=== PATIENT | male | born 1930 | race Caucasian/White ===

== ENCOUNTER 2017-10-30 11:43 | Emergency (ER) | payer MEDICARE, OTHER ==
[~2017-10-30] VITALS: Ht 175.3 cm; Wt 82.6 kg
--- NOTE | 2017-10-30 11:51 | NUR ---
BBPA FROM [facility]: UNWITNESSED FALL TODAY IN AM. ABRASIONS TO FOREHEAD. VSS. NEG ACUTE DISTRESS. WILL CONTINUE TO MONITOR. SAFETY MEASURES IN PLACE. CALL LIGHT WITHIN REACH.
--- NOTE | 2017-10-30 12:04 | NUR ---
URINE OBTAINED AND SENT TO LAB.
[2017-10-30 12:17] LABS: APPEARANCE,URINE Clear (CLEAR); BILIRUBIN,URINE Negative (NEGATIVE); BLOOD, URINE Negative Ery/uL (NEGATIVE); COLOR,URINE Yellow (YELLOW); KETONES,URINE Negative (NEGATIVE); LEUKOCYTE ESTERASE ,URINE Negative (NEGATIVE); NITRITE, URINE Negative (NEGATIVE); PH,URINE 5.5 (5.0-8.0); PROTEIN,URINE 30 mg/dl (NEGATIVE); UGLUCOSE Negative (NEGATIVE); UROBILINOGEN,URINE 0.2 EU/dL (0.2)
[2017-10-30 12:18] LABS: BASOPHILS % (AUTO) 0.6 % (0.0-2.0); EOSINOPHILS % (AUTO) 2.5 % (0.0-6.0); HEMATOCRIT 37 % (39-51); HEMOGLOBIN 12.3 g/dL (13.5-17.5); LYMPHOCYTES # (AUTO) 1.5 /CMM (0.8-4.8); LYMPHOCYTES % (AUTO) 27.1 % (20.0-44.0); MEAN CORPUSCULAR HGB CONC 34 g/dl (31.0-36.0); MEAN CORPUSCULAR VOLUME 88 fL (80-96); MONOCYTES # (AUTO) 0.5 /CMM (0.1-1.30); MONOCYTES % (AUTO) 8.5 % (2.0-12.0); NEUTROPHILS # (AUTO) 3.5 /CMM (1.8-8.9); NEUTROPHILS % (AUTO) 61.3 % (43.0-81.0); PLATELET COUNT (AUTO) 274 /CMM (150-450); RDW COEFFICIENT OF VARIATION 13.8 (11.5-15.0); RED BLOOD CELL COUNT(AUTO) 4.13 MIL/uL (4.5-6.0); WHITE BLOOD COUNT (AUTO) 5.6 K/uL (4.3-11.0)
[2017-10-30 12:23] LABS: BACTERIA,URINE None seen /HPF (None Seen); RBC,URINE 0-3 /HPF (0-2); SQUAMOUS EPITHELIAL CELL,UR Few /HPF (None Seen)
[2017-10-30 12:25] LABS: CALCIUM, SERUM 9.1 mg/dL (8.5-10.1); CARBON DIOXIDE 29 mmol/L (21-32); CHLORIDE 109 mmol/L (98-107); CREATININE 2.1 mg/dL (0.6-1.3); GLUCOSE 86 mg/dL (74-106); POTASSIUM 4.9 mmol/L (3.5-5.1); SODIUM SERUM 142 mmol/L (136-145); UREA NITROGEN, BLOOD 46 mg/dL (7-18)
--- NOTE | 2017-10-30 12:25 | NUR ---
PT UNDERGOING X RAY
[2017-10-30 12:31] LABS: ALANINE AMINOTRANSFERASE 20 U/L (12-78); ALBUMIN 3.2 g/dL (3.4-5.0); ALKALINE PHOSPHATASE 130 U/L (46-116); ASPARTATE AMINOTRANSFERASE 17 U/L (15-37); BILIRUBIN,DIRECT 0.1 mg/dL (0.0-0.2); BILIRUBIN,TOTAL 0.4 mg/dL (0.2-1.0); TOTAL PROTEIN, SERUM 7.4 g/dL (6.4-8.2)
[2017-10-30 12:33] LABS: TROPONIN I < 0.017 ng/mL (0.00-0.056)
--- NOTE | 2017-10-30 12:50 | NUR ---
PT UNDERGOING CT SCAN
--- NOTE | 2017-10-30 13:03 | NUR ---
PATIENT RETURNED FROM CT.
--- NOTE | 2017-10-30 13:45 | NUR ---
ambulance eta 20 minutes
--- NOTE | 2017-10-30 14:29 | NUR ---
REPORT GIVEN TO GEMINI AT [facility] FOR DISCHARGE BACK TO FACILITY.
[2017-10-30 14:35] VITALS: BP 135/94
--- NOTE | 2017-10-30 14:38 | NUR ---
Patient discharged back to [facility] in stable condition. Written and verbal after care instructions given. Report given to Indigo at [facility]. Patient discharged via ambulance.
== END 2017-10-30 14:37 ==
LOC: ER 11:45
DX: S09.8XXA Other specified injuries of head, initial encounter (principal); G30.9 Alzheimer's disease, unspecified; F02.80 Dementia in other diseases classified elsewhere, unspecified severity, without behavioral disturbance, psychotic disturbance, mood disturbance, and anxiety; I12.9 Hypertensive chronic kidney disease with stage 1 through stage 4 chronic kidney disease, or unspecified chronic kidney disease; E11.22 Type 2 diabetes mellitus with diabetic chronic kidney disease; N18.9 Chronic kidney disease, unspecified; K21.9 Gastro-esophageal reflux disease without esophagitis; Z91.81 History of falling; W18.39XA Other fall on same level, initial encounter; Y93.89 Activity, other specified; Y92.89 Other specified places as the place of occurrence of the external cause; Y99.8 Other external cause status
CPT/HCPCS: 36415; 70450; 71045; 80048; 80076; 81001; 82962; 84484; 85025; 87086; 93005; 99285; A4606; 81000-TC; Z7610

== ENCOUNTER 2017-11-15 12:45 | Inpatient (IN) | payer MEDICARE, OTHER ==
[~2017-11-15] VITALS: Ht 177.8 cm; Wt 80.7 kg
--- NOTE | 2017-11-15 12:50 | NUR ---
ANUPAM FROM [facility] FOR PSYCH EVAL FOR AGGRESSION AND MEDICAL CLEARANCE, AA0X2, NAD, VSS, RESP EVEN AND UNLABORED, PT WAS PUT ON MONITOR AND PT WAS PUT ON MD JOSE DAVID AT BS.
--- NOTE | 2017-11-15 13:05 | NUR ---
URINE AND BLOOD SAMPLE SENT TO LAB
[2017-11-15 13:15] LABS: BASOPHILS % (AUTO) 0.4 % (0.0-2.0); EOSINOPHILS % (AUTO) 5.2 % (0.0-6.0); HEMATOCRIT 34 % (39-51); HEMOGLOBIN 11.6 g/dL (13.5-17.5); LYMPHOCYTES # (AUTO) 1.3 /CMM (0.8-4.8); LYMPHOCYTES % (AUTO) 22.5 % (20.0-44.0); MEAN CORPUSCULAR HEMOGLOBIN 31 PG (26.0-33.0); MEAN CORPUSCULAR HGB CONC 34 g/dl (31.0-36.0); MEAN CORPUSCULAR VOLUME 91 fL (80-96); MONOCYTES # (AUTO) 0.5 /CMM (0.1-1.30); MONOCYTES % (AUTO) 7.7 % (2.0-12.0); NEUTROPHILS # (AUTO) 3.9 /CMM (1.8-8.9); NEUTROPHILS % (AUTO) 64.2 % (43.0-81.0); PLATELET COUNT (AUTO) 287 /CMM (150-450); RDW COEFFICIENT OF VARIATION 13.8 (11.5-15.0); RED BLOOD CELL COUNT(AUTO) 3.76 MIL/uL (4.5-6.0)
[2017-11-15 13:17] LABS: APPEARANCE,URINE Clear (CLEAR); BILIRUBIN,URINE Negative (NEGATIVE); BLOOD, URINE Trace-intact Ery/uL (NEGATIVE); COLOR,URINE Yellow (YELLOW); KETONES,URINE Negative (NEGATIVE); LEUKOCYTE ESTERASE ,URINE Negative (NEGATIVE); NITRITE, URINE Negative (NEGATIVE); PH,URINE 5.5 (5.0-8.0); PROTEIN,URINE Trace mg/dl (NEGATIVE); UGLUCOSE Negative (NEGATIVE); UROBILINOGEN,URINE 0.2 EU/dL (0.2)
[2017-11-15 13:26] LABS: BACTERIA,URINE None seen /HPF (None Seen); CALCIUM, SERUM 8.4 mg/dL (8.5-10.1); CARBON DIOXIDE 29 mmol/L (21-32); CHLORIDE 108 mmol/L (98-107); GLUCOSE 110 mg/dL (74-106); POTASSIUM 4.8 mmol/L (3.5-5.1); SODIUM SERUM 142 mmol/L (136-145); SQUAMOUS EPITHELIAL CELL,UR Few /HPF (None Seen); UREA NITROGEN, BLOOD 44 mg/dL (7-18); WBC,URINE 0-2 /HPF (0-3)
[2017-11-15 13:30] LABS: ACETAMINOPHEN 0 ug/ml (10-30); ALANINE AMINOTRANSFERASE 21 U/L (12-78); ALCOHOL, BLOOD < 3 mg/dL (0-0); ALKALINE PHOSPHATASE 133 U/L (46-116); ASPARTATE AMINOTRANSFERASE 17 U/L (15-37); BILIRUBIN,DIRECT 0.1 mg/dL (0.0-0.2); BILIRUBIN,TOTAL 0.3 mg/dL (0.2-1.0); SALICYLATE 0.6 mg/dL (2.8-20.0); TOTAL PROTEIN, SERUM 6.9 g/dL (6.4-8.2)
[2017-11-15] MEDS ORDERED: QUET25TA PO (13:44)
[2017-11-15] MEDS ORDERED: PANT40TA2 PO (13:44)
[2017-11-15] MEDS ORDERED: MAGN400O6 PO (13:44)
[2017-11-15] MEDS ORDERED: LOSA50TA3 PO (13:44)
[2017-11-15] MEDS ORDERED: ASCO500T9 PO (13:44)
[2017-11-15] MEDS ORDERED: INSU100I19 SQ (13:44)
[2017-11-15] MEDS ORDERED: ESCI5TAB PO (13:44)
[2017-11-15] MEDS ORDERED: MEMA1CAP2 PO (13:44)
[2017-11-15] MEDS ORDERED: QUET50TA PO (13:44)
[2017-11-15] MEDS ORDERED: ACET-868 PO (13:44)
[2017-11-15] MEDS ORDERED: BLOO-668 IN (13:44)
[2017-11-15] MEDS ORDERED: INSU100V11 SQ (13:44)
[2017-11-15] MEDS ORDERED: NA P133E RC (13:44)
[2017-11-15] MEDS ORDERED: POLY17PO4 PO (13:44)
--- NOTE | 2017-11-15 13:56 | NUR ---
CALLED [facility] BACTERIOLOGIST [facility]
--- NOTE | 2017-11-15 15:25 | NUR ---
CALLED [facility], INFECTION CONTROL NURSE WAS PAGED.
--- NOTE | 2017-11-15 15:27 | NUR ---
CALLED [facility], BOARD MIXER TENDER WAS PAGED.
--- NOTE | 2017-11-15 16:44 | NUR ---
PT REFUSED IV INSERTION, MADE CORTEZ SCHMITT AWARE, AND OKAY TO TRANSFER PT WITHOUT IV ACCESS. ENDORSED TO ROCIO COSME.
[2017-11-15 17:05] VITALS: BP 148/84
--- NOTE | 2017-11-15 17:39 | NUR ---
MS RN ADMITTING NOTES PATIENT ADMITTED TO UNIT AT 1700 VIA GURNEY AWAKE, ALERT AND RESPONSIVE TO TACTILE AND VERBAL STIMULI. PT ABLE TO AMBULATE AND TRANSFERRED HIMSELF TO BED. PT IS KAZAKH SPEAKING AND ORIENTED TO ROOM. PT WITH DIAGNOSIS OF RENAL INSUFFICIENCY. NO C/O OF PAIN OR DISCOMFORTS VOICED DURING ADMISSION. V/S TAKEN AND RECORDED. ASSESSMENT DONE FROM HEAD TO TOE. PT ABLE TO MOVE ALL FOUR EXTREMITIES WITHOUT DIFFICULTY. BOTH LUNGS CLEAR TO AUSCULTATION. ABDOMEN IS SOFT, NON-TENDED, NON-DISTENDED WITH POSITIVE BOWEL SOUNDS ON FOUR QUADRANTS. PHOTOS OF SKIN TAKEN AND FILED ON CHART. PT HAD NO IV ACCESS, REFUSED INSERTION FROM E.R. AND HERE IN THE UNIT DESPITE ENCOURAGEMENT, DR CISNEROS MADE AWARE. SAFETY MEASURES INITIATED. HOB ELEVATED. BED PLACED IN LOW/LOCKED POSITION WITH SIDE-RAILS UP X 2. KEEP BED ALARM ON. CALL LIGHT WITHIN REACH. DR CISNEROS MADE AWARE OF PT'S ADMISSION WITH ORDER TO CONTINUE ALL HOME MEDS, PLACED PT ON RENAL DIET AND DO CBC. BMP, MG AND PHOSPHOROUS TOMORROW MORNING. WILL CONTINUE TO MONITOR PT.
--- NOTE | 2017-11-15 18:09 | NUR ---
RN NOTES SPOKE TO DR ROBERTSON VIA PHONE WITH ORDER TO PUT PT ON ACCU-CHECK ACHS WITH MILD SCALE INSULIN PRN.
[2017-11-15] MEDS ORDERED: ACETAMINOPHEN 325 MG TABLET PO PRN (18:30)
[2017-11-15] MEDS ORDERED: POLYETHYLENE GLYCOL 3350 17 GM POWD.PACK PO PRN (18:30)
[2017-11-15] MEDS ORDERED: MAGNESIUM HYDROXIDE 30 ML UDC PO PRN (18:30)
[2017-11-15] MEDS ORDERED: INSULIN ASPART/LISPRO 100 UNIT/ML CARTRIDGE SQ PRN (18:30)
[2017-11-15] MEDS ORDERED: NA PHOS,M-B/NA PHOS,DI-BA 1 EA ENEMA RC PRN (18:30)
--- NOTE | 2017-11-15 18:56 | NUR ---
MS RN CLOSING NOTES PATIENT AWAKE AND RESTING AT MODERATE HIGH BACKREST IN BED. A/O X2. UGANDAN SPEAKING AND NOTED WITH EPISODE OF CONFUSION. ON ROOM AIR, BREATHING EVEN WITH NO ACUTE RESPIRATORY DISTRESS NOTED. PT HAS NO IV ACCESS AND REFUSED INSERTION. ALL SAFETY MEASURES KEPT IN PLACE. BED LOCKED AND IN LOW POSITION. BILATERAL UPPER SIDE RAILS UP AND LOCKED. BED ALARRM ON. CALL LIGHT WITHIN EASY REACH. ALL NEEDS AND CARE ATTENDED WELL. WILL ENDORSE TO SAFETY AND SECURITY MANAGER NURSE FOR CONTINUITY OF CARE.
--- NOTE | 2017-11-15 19:20 | NUR ---
RN OPENING NOTES RECEIVED PT IN BED, AWAKE, ALERT AND CONFUSED, WHILE AM SHIFT NURSE WAS GIVING REPORT PT WITH EPISODE OF GETTING UP UNASSISTED. RE-ORIENTED PT ON USE OF CALL LIGHT BUT PT IS UNABLE TO FOLLOW AND NEEDS REINFORCEMENT. PT NOTED WITH NO SOB, BREATHING EVEN AND UNLABORED, IN NO ACUTE DISTRESS. PT WITH NO IV PERIPHERAL LINE AND REFUSES FOR ONE TO BE INSERTED. PLACED CALL LIGHT WITHIN EASY REACH. BED IN LOW POSITION AND LOCKED IN PLACE. WILL CONTINUE TO MONITOR PT.
[2017-11-15] MEDS ORDERED: DEXTROSE 50%-WATER 50 ML DISP.SYRIN IV PRN (19:30)
[2017-11-15] MEDS ORDERED: INSULIN REGULAR, HUMAN 100 UNIT/ML 3 ML VIAL SQ PRN (19:30)
[2017-11-15 20:00] VITALS: BP 153/79
[2017-11-15] MEDS: BLOOD SUGAR DIAGNOSTIC 1 EACH STRIP IN SCH (21:35)
[2017-11-15] MEDS ORDERED: DONEPEZIL 5 MG TABLET PO SCH (22:00)
[2017-11-15] MEDS ORDERED: QUETIAPINE FUMARATE 25 MG TABLET PO SCH (22:00)
[2017-11-15] MEDS ORDERED: Medication Not On Formulary EA (Quetiapine Fumarate (Seroquel) 50 MG) PO SCH (22:00)
[2017-11-15] MEDS: INSULIN GLARGINE, 100 UNIT/ML CARTRIDGE SQ SCH ×2 (22:00→22:42)
--- NOTE | 2017-11-15 22:00 | NUR ---
RN NOTES PT REFUSED INSULIN 5ML TO BE ADMINISTERED AND STARTED TO CURSE AT STAFF. EXPLAINED RISKS AND BENEFITS TO PT BUT PT CONTINUES TO REFUSE AND IS STARTING TO GET UPSET. APPROACHED PT IN A CALMER MANNER, RE-ORIENTED PT AND PT CALMED DOWN AT THIS TIME. WILL CONTINUE TO MONITOR.
--- NOTE | 2017-11-15 23:04 | NUR ---
RN NOTES PT CONTINUES TO BE CONFUSED AND IS VERBALIZING THAT HE IS AT HOME, WITH MULTIPLE ATTEMPTS TO GET OUT OF BED AND WANDER THE UNIT. PT APPROACHED CALMY AND RE-ORIENTED NEEDED PT HAS UNSTEADY GAIT. PT NON COMPLIANT AND CONTINUES TO HAVE EPISODES OF AGITATION AND COMBATIVE BEHAVIOR AND IS CURSING AT STAFF. RE-ORIENTED PT NEEDED. PAGED WEIGHT CALLER , DR. ROBERTSON. WAITING FOR CALL BACK.
--- NOTE | 2017-11-15 23:32 | NUR ---
RN NOTES PT CONTINUES TO WALK AROUND UNIT WITH STANDBY ASSIST. PT RE-ORIENTED NEEDED BUT HAS PERIODS OF AGITATION AND COMBATIVE BEHAVIOR TOWARDS STAFF. PAGED BRAID MAKER MD ONCE AGAIN. WAITING FOR CALL BACK.
--- NOTE | 2017-11-16 | NUR ---
RN NOTES PATIENT CONTINUES TO ROAM AROUND THE UNIT BUT IS NOW USING A WHEELCHAIR, RE-ORIENTED PT NEEDED BUT STILL EXHIBITS COMBATIVE BEHAVIOR AND IS AGITATED WHEN APPROACHED BY SOME STAFF WITH ATTEMPTS TO HIT STAFF. PAGED B2B SALES EXECUTIVE MD. WAITING FOR CALL BACK.
--- NOTE | 2017-11-16 00:45 | NUR ---
RN NOTES PATIENT CONTINUES TO GO AROUND THE UNIT VIA WHEELCHAIR WITH SUPERVISION. PATIENT WITH ATTEMPTS TO ENTER OTHER PT'S ROOMS AND OPEN CLOSETS. BECOMES AGITATED AT TIMES WHEN RE-ORIENTED AND STARTS TO EXHIBIT COMBATIVE BEHAVIOR. STILL RE-ORIENTED NEEDED. WAITING FOR CALL BACK FROM QUARRY PLUG AND FEATHER DRILLER MD.
--- NOTE | 2017-11-16 01:35 | NUR ---
RN NOTES RECEIVED CALL BACK FROM DR. ROBERTSON, WITH NEW ORDER: ATIVAN 1MG IM [id number] PRN FOR AGITATION. ALL ORDERS NOTED AND CARRIED OUT.
--- NOTE | 2017-11-16 01:45 | NUR ---
RN NOTES PATIENT AGREED TO BE PUT BACK TO BED, APPEARS TIRED, NOW COMPLIANT AND IS FOLLOWING INSTRUCTIONS. WILL CONTINUE TO MONITOR PT. CALL LIGHT PLACED WITHIN EASY REACH, BED IN LOW POSITION, BED ALARM ON AND LOCKED IN PLACE. WILL CONTINUE TO MONITOR PT.
[2017-11-16] MEDS: LORAZEPAM INJ 2 MG/ML VIAL IM PRN ×2 (02:39→09:19)
--- NOTE | 2017-11-16 02:44 | NUR ---
RN NOTES PT IN BED, AWAKE, CRYING OUT TO STAFF AND NOTED WITH AGITATION, RE-ORIENTED PT. ADMINISTERED ATIVAN IM ORDERED. WILL CONTINUE TO MONITOR.
[2017-11-16] MEDS: BLOOD SUGAR DIAGNOSTIC 1 EACH STRIP IN SCH ×2 (06:33→11:39)
--- NOTE | 2017-11-16 06:38 | NUR ---
RN CLOSING NOTES PATIENT IN BED, ASLEEP BUT EASILY AROUSABLE ,ALERT AND ORIENTED TO SELF AND CONFUSED. ALL NEEDS ATTENDED TO THROUGHOUT THE SHIFT, RE-ORIENTED NEEDED. NOTED WITH EPISODES OF AGGRESSIVE AND COMBATIVE BEHAVIOR, TRYING TO HIT STAFF AND WITH FOUL LANGUAGE DIRECTED TO STAFF. DUE MEDICATIONS GIVEN. PT CALM AT THIS TIME, WAS ABLE TO INSERT IV LINE ON LFA G#22, INTACT AND PATENT. KEPT PT SAFE AND DRY, CLEAN AND COMFORTABLE. PLACED CALL LIGHT WITHIN EASY REACH. BED IN LOW POSITION, LOCKED IN PLACE AND BED ALARM ON. WILL ENDORSE TO AM SHIFT NURSE FOR CONTINUITY OF CARE.
[2017-11-16 06:52] LABS: BASOPHILS % (AUTO) 0.4 % (0.0-2.0); EOSINOPHILS % (AUTO) 3.3 % (0.0-6.0); HEMATOCRIT 35 % (39-51); HEMOGLOBIN 11.7 g/dL (13.5-17.5); LYMPHOCYTES # (AUTO) 1.8 /CMM (0.8-4.8); LYMPHOCYTES % (AUTO) 23.3 % (20.0-44.0); MEAN CORPUSCULAR HEMOGLOBIN 31 PG (26.0-33.0); MEAN CORPUSCULAR HGB CONC 33 g/dl (31.0-36.0); MEAN CORPUSCULAR VOLUME 93 fL (80-96); MONOCYTES # (AUTO) 0.7 /CMM (0.1-1.30); MONOCYTES % (AUTO) 9.4 % (2.0-12.0); NEUTROPHILS # (AUTO) 4.9 /CMM (1.8-8.9); NEUTROPHILS % (AUTO) 63.6 % (43.0-81.0); PLATELET COUNT (AUTO) 280 /CMM (150-450); RDW COEFFICIENT OF VARIATION 14.7 (11.5-15.0); RED BLOOD CELL COUNT(AUTO) 3.81 MIL/uL (4.5-6.0); WHITE BLOOD COUNT (AUTO) 7.6 K/uL (4.3-11.0)
[2017-11-16 07:15] LABS: CALCIUM, SERUM 8.6 mg/dL (8.5-10.1); CARBON DIOXIDE 24 mmol/L (21-32); CHLORIDE 111 mmol/L (98-107); CREATININE 2.2 mg/dL (0.6-1.3); GLUCOSE 94 mg/dL (74-106); MAGNESIUM 1.9 mg/dL (1.8-2.4); PHOSPHORUS 3.5 mg/dL (2.5-4.9); POTASSIUM 4.6 mmol/L (3.5-5.1); SODIUM SERUM 143 mmol/L (136-145); UREA NITROGEN, BLOOD 47 mg/dL (7-18)
[2017-11-16] MEDS ORDERED: BLOOD SUGAR DIAGNOSTIC 1 EACH STRIP IN SCH (07:30)
[2017-11-16] MEDS ORDERED: PANTOPRAZOLE 40 MG TABLET.DR PO SCH (07:30)
--- NOTE | 2017-11-16 07:30 | NUR ---
RECEIVED PT. THIS AM CONFUSED,VS STABLE.HAS 1:1 SITTER.SIDE RAILS UP.SITTER AT BEDSIDE.
[2017-11-16 08:00] VITALS: BP 138/71
[2017-11-16] MEDS ORDERED: LOSARTAN POTASSIUM 50 MG TABLET PO SCH (09:00)
[2017-11-16] MEDS ORDERED: QUETIAPINE FUMARATE 25 MG TABLET PO SCH (09:00)
[2017-11-16] MEDS ORDERED: Medication Not On Formulary EA (Escitalopram Oxalate (Lexapro) 5 MG) PO SCH (09:00)
[2017-11-16] MEDS ORDERED: Medication Not On Formulary EA (Memantine HCl/Donepezil HCl (Namzaric 14 mg-10 mg Capsul PO SCH (09:00)
[2017-11-16] MEDS ORDERED: ESCITALOPRAM OXALATE (10 MG) 10 MG TABLET PO SCH (09:00)
[2017-11-16] MEDS ORDERED: ASCORBIC ACID 500 MG TABLET PO SCH (09:00)
[2017-11-16] MEDS ORDERED: MEMANTINE HCL 5 MG TABLET PO SCH (09:00)
--- NOTE | 2017-11-16 09:00 | NUR ---
AMBULATED SEVERAL TIMES TO BATHROOM WITH ASSIST,A LITTLE UNSTEADY.
--- NOTE | 2017-11-16 09:19 | NUR ---
PT. AGITATED AND THRASHING ARMS ABOUT AT [facility]-MEDICATED WITH ATIVAN IM ALONG WITH ROUTINE MEDS.
--- NOTE | 2017-11-16 12:00 | NUR ---
DR. CHIKI GALINDO IN AND DISCHARGE ORDER TO OUR [facility].
--- NOTE | 2017-11-16 12:30 | NUR ---
NO SLIDING SCALE INSULIN COVERAGE AT THIS TIME PT. GROGGY AND NOT EATING.
--- NOTE | 2017-11-16 14:30 | NUR ---
PINKY HERE EVAL. PT. FOR PSYCH HOLD.
[2017-11-16 15:00] VITALS: BP 128/72
--- NOTE | 2017-11-16 16:00 | NUR ---
REPORT CALLED TO AROLDO LUCIAO.PT. TRANSFERR[facility] TO [facility]IA BED WITH ALL PAPERS.
[2017-11-16] MEDS ORDERED: DEXT50DI8 IV (16:25)
[2017-11-16] MEDS ORDERED: MEMA10TA PO (16:25)
[2017-11-16] MEDS ORDERED: INSU100V3 SQ (16:25)
[2017-11-16] MEDS ORDERED: LORA2VIA6 IM (16:25)
[2017-11-16] MEDS ORDERED: DONE10TA44 PO (16:25)
[2017-11-16] MEDS ORDERED: INSU100V7 SQ (16:26)
== END 2017-11-16 15:45 | DRG 684 ==
LOC: ER 12:47 → MED 16:35
PROVIDERS: ADMIT Internal Medicine Nephrology; ATTEND Internal Medicine Nephrology
DX: I12.9 Hypertensive chronic kidney disease with stage 1 through stage 4 chronic kidney disease, or unspecified chronic kidney disease (principal); N18.9 Chronic kidney disease, unspecified; E11.22 Type 2 diabetes mellitus with diabetic chronic kidney disease; F02.80 Dementia in other diseases classified elsewhere, unspecified severity, without behavioral disturbance, psychotic disturbance, mood disturbance, and anxiety; G30.9 Alzheimer's disease, unspecified; K21.9 Gastro-esophageal reflux disease without esophagitis; Z79.4 Long term (current) use of insulin; Z91.81 History of falling; Z79.899 Other long term (current) drug therapy; R45.1 Restlessness and agitation
CPT/HCPCS: 36415; 80048-TC; 80076-TC; 80305; 81000-TC; 82962-TC; 83735-TC; 84100-TC; 85025-TC; 87081-TC; A4606; G0480; J1815; J2060; Z7610

== ENCOUNTER 2017-11-16 16:15 | Inpatient (IN) | payer MEDICARE, OTHER ==
[~2017-11-16] VITALS: Ht 175.3 cm; Wt 83.5 kg
[2017-11-16 08:00] VITALS: BP 138/71
[2017-11-16 16:00] VITALS: BP_SYST 119; BP_SYST 128; BP_SYST 129; BP_DIAS 72; BP_DIAS 73; BP_DIAS 80
[~2017-11-16 16:15] MED LIST: ACET-868 PO; ASCO500T9 PO; BLOO-668 IN; ESCI5TAB PO; INSU100I19 SQ; INSU100V11 SQ; LOSA50TA3 PO; MAGN400O6 PO; MEMA1CAP2 PO; NA P133E RC; PANT40TA2 PO; POLY17PO4 PO; QUET25TA PO; QUET50TA PO
[2017-11-16 16:22] VITALS: BP 143/79
[2017-11-16] MEDS ORDERED: INSU100V3 SQ (16:25)
[2017-11-16] MEDS ORDERED: DEXT50DI8 IV (16:25)
[2017-11-16] MEDS ORDERED: MEMA10TA PO (16:25)
[2017-11-16] MEDS ORDERED: DONE10TA44 PO (16:25)
[2017-11-16] MEDS ORDERED: LORA2VIA6 IM (16:25)
[2017-11-16] MEDS ORDERED: INSU100V7 SQ (16:26)
[2017-11-16] MEDS ORDERED: MAG HYDROX/AL HYDROX/SIMETH 30 ML UDC PO PRN (16:30)
[2017-11-16] MEDS ORDERED: ACETAMINOPHEN 325 MG TABLET PO PRN ×2 (16:30→18:30)
[2017-11-16] MEDS ORDERED: MAGNESIUM HYDROXIDE 30 ML UDC PO PRN ×2 (16:30→18:30)
[2017-11-16] MEDS ORDERED: DEXTROSE 50%-WATER 50 ML DISP.SYRIN IV PRN ×2 (18:30)
[2017-11-16] MEDS ORDERED: INSULIN REGULAR, HUMAN 100 UNIT/ML 3 ML VIAL SQ PRN ×2 (18:30)
[2017-11-16] MEDS ORDERED: POLYETHYLENE GLYCOL 3350 17 GM POWD.PACK PO PRN (18:30)
[2017-11-16] MEDS ORDERED: NA PHOS,M-B/NA PHOS,DI-BA 1 EA ENEMA RC PRN (18:30)
[2017-11-16] MEDS: MEMANTINE HCL 5 MG TABLET PO SCH (18:31)
[2017-11-16 20:00] VITALS: BP 108/63
[2017-11-16] MEDS: DONEPEZIL 5 MG TABLET PO SCH (21:24)
[2017-11-16] MEDS: BLOOD SUGAR DIAGNOSTIC 1 EACH STRIP IN SCH (22:09)
[2017-11-16] MEDS ORDERED: INSULIN GLARGINE, 100 UNIT/ML CARTRIDGE SQ ONE (22:33)
[2017-11-16] MEDS: INSULIN GLARGINE, 100 UNIT/ML CARTRIDGE SQ SCH (22:58)
[2017-11-17] MEDS: TEMAZEPAM 7.5 MG CAPSULE PO PRN ×2 (00:25→22:52)
[2017-11-17 01:50] VITALS: BP 121/71
[2017-11-17] MEDS ORDERED: BLOOD SUGAR DIAGNOSTIC 1 EACH STRIP IN SCH (07:30)
[2017-11-17 07:41] LABS: ALANINE AMINOTRANSFERASE 20 U/L (12-78); ALBUMIN 3.2 g/dL (3.4-5.0); ALKALINE PHOSPHATASE 123 U/L (46-116); ASPARTATE AMINOTRANSFERASE 20 U/L (15-37); BILIRUBIN,TOTAL 0.5 mg/dL (0.2-1.0); CALCIUM, SERUM 8.3 mg/dL (8.5-10.1); CARBON DIOXIDE 25 mmol/L (21-32); CHLORIDE 107 mmol/L (98-107); CREATININE 2.1 mg/dL (0.6-1.3); GLUCOSE 83 mg/dL (74-106); POTASSIUM 4.5 mmol/L (3.5-5.1); SODIUM SERUM 143 mmol/L (136-145); TOTAL PROTEIN, SERUM 6.8 g/dL (6.4-8.2); UREA NITROGEN, BLOOD 43 mg/dL (7-18)
[2017-11-17 07:43] LABS: CHOLESTEROL 105 mg/dL (<200); HDL CHOLESTEROL 34 mg/dL (40-60); LDL 66 mg/dL (0-99); TRIGLYCERIDES 65 mg/dL (30-150)
[2017-11-17 08:00] VITALS: BP 131/89
[2017-11-17] MEDS: BLOOD SUGAR DIAGNOSTIC 1 EACH STRIP IN SCH ×4 (08:01→21:53)
[2017-11-17] MEDS: ASCORBIC ACID 500 MG TABLET PO SCH (08:37)
[2017-11-17] MEDS: MEMANTINE HCL 5 MG TABLET PO SCH ×2 (08:38→18:04)
[2017-11-17] MEDS: LOSARTAN POTASSIUM 50 MG TABLET PO SCH (08:38)
[2017-11-17] MEDS: PANTOPRAZOLE 40 MG TABLET.DR PO SCH (08:38)
[2017-11-17] MEDS ORDERED: QUETIAPINE FUMARATE 25 MG TABLET PO PRN (12:30)
[2017-11-17] MEDS: SERTRALINE HCL 50 MG TABLET PO SCH (13:50)
[2017-11-17 16:00] VITALS: BP 146/82
[2017-11-17] MEDS: QUETIAPINE FUMARATE 25 MG TABLET PO SCH (18:04)
[2017-11-17 20:27] VITALS: BP 103/59
[2017-11-17] MEDS: INSULIN GLARGINE, 100 UNIT/ML CARTRIDGE SQ SCH (21:48)
[2017-11-17] MEDS: DONEPEZIL 5 MG TABLET PO SCH (22:53)
[2017-11-18 08:00] VITALS: BP 127/65
[2017-11-18] MEDS: LOSARTAN POTASSIUM 50 MG TABLET PO SCH (08:11)
[2017-11-18] MEDS: MEMANTINE HCL 5 MG TABLET PO SCH ×2 (08:11→16:52)
[2017-11-18] MEDS: QUETIAPINE FUMARATE 25 MG TABLET PO SCH ×2 (08:11→16:52)
[2017-11-18] MEDS: ASCORBIC ACID 500 MG TABLET PO SCH (08:13)
[2017-11-18] MEDS: PANTOPRAZOLE 40 MG TABLET.DR PO SCH (08:13)
[2017-11-18] MEDS: BLOOD SUGAR DIAGNOSTIC 1 EACH STRIP IN SCH ×4 (08:24→22:44)
[2017-11-18] MEDS: SERTRALINE HCL 50 MG TABLET PO SCH (13:00)
[2017-11-18 16:00] VITALS: BP 121/67
[2017-11-18] MEDS: DONEPEZIL 5 MG TABLET PO SCH (21:08)
[2017-11-18] MEDS: TEMAZEPAM 7.5 MG CAPSULE PO PRN (21:08)
[2017-11-18] MEDS: INSULIN GLARGINE, 100 UNIT/ML CARTRIDGE SQ SCH (22:00)
[2017-11-19 08:00] VITALS: BP 138/85
[2017-11-19] MEDS: ASCORBIC ACID 500 MG TABLET PO SCH (08:11)
[2017-11-19] MEDS: MEMANTINE HCL 5 MG TABLET PO SCH ×2 (08:11→16:30)
[2017-11-19] MEDS: BLOOD SUGAR DIAGNOSTIC 1 EACH STRIP IN SCH ×4 (08:11→22:09)
[2017-11-19] MEDS: PANTOPRAZOLE 40 MG TABLET.DR PO SCH (08:11)
[2017-11-19] MEDS: LOSARTAN POTASSIUM 50 MG TABLET PO SCH (08:11)
[2017-11-19] MEDS: QUETIAPINE FUMARATE 25 MG TABLET PO SCH ×3 (08:12→16:30)
[2017-11-19] MEDS: SERTRALINE HCL 50 MG TABLET PO SCH (12:22)
[2017-11-19 16:00] VITALS: BP 132/85
[2017-11-19 20:10] VITALS: BP 132/76
[2017-11-19] MEDS: LORAZEPAM 0.5 MG TABLET PO PRN (20:50)
[2017-11-19] MEDS: DONEPEZIL 5 MG TABLET PO SCH (21:11)
[2017-11-19] MEDS: INSULIN GLARGINE, 100 UNIT/ML CARTRIDGE SQ SCH (22:09)
[2017-11-20 08:00] VITALS: BP 124/69
[2017-11-20] MEDS: PANTOPRAZOLE 40 MG TABLET.DR PO SCH (08:22)
[2017-11-20] MEDS: ASCORBIC ACID 500 MG TABLET PO SCH (08:22)
[2017-11-20] MEDS: MEMANTINE HCL 5 MG TABLET PO SCH ×2 (08:22→17:14)
[2017-11-20] MEDS: LOSARTAN POTASSIUM 50 MG TABLET PO SCH (08:24)
[2017-11-20] MEDS: BLOOD SUGAR DIAGNOSTIC 1 EACH STRIP IN SCH ×4 (08:24→21:42)
[2017-11-20] MEDS: QUETIAPINE FUMARATE 25 MG TABLET PO SCH ×3 (09:46→17:14)
[2017-11-20] MEDS: SERTRALINE HCL 50 MG TABLET PO SCH (13:11)
[2017-11-20 17:02] VITALS: BP 130/71
[2017-11-20] MEDS: LORAZEPAM 0.5 MG TABLET PO PRN (20:32)
[2017-11-20 20:37] VITALS: BP 130/76
[2017-11-20] MEDS: DONEPEZIL 5 MG TABLET PO SCH (21:21)
[2017-11-20] MEDS: INSULIN GLARGINE, 100 UNIT/ML CARTRIDGE SQ SCH (21:47)
[2017-11-20] MEDS: TEMAZEPAM 7.5 MG CAPSULE PO PRN (23:38)
[2017-11-21 08:00] VITALS: BP 108/55
[2017-11-21] MEDS: LOSARTAN POTASSIUM 50 MG TABLET PO SCH (09:00)
[2017-11-21] MEDS: MEMANTINE HCL 5 MG TABLET PO SCH ×2 (09:26→16:55)
[2017-11-21] MEDS: PANTOPRAZOLE 40 MG TABLET.DR PO SCH (09:26)
[2017-11-21] MEDS: ASCORBIC ACID 500 MG TABLET PO SCH (09:26)
[2017-11-21] MEDS: QUETIAPINE FUMARATE 25 MG TABLET PO SCH ×3 (09:26→16:55)
[2017-11-21] MEDS: BLOOD SUGAR DIAGNOSTIC 1 EACH STRIP IN SCH ×4 (09:27→21:10)
[2017-11-21] MEDS: SERTRALINE HCL 50 MG TABLET PO SCH (12:29)
[2017-11-21 16:00] VITALS: BP 124/67
[2017-11-21 20:00] VITALS: BP 145/75
[2017-11-21] MEDS: LORAZEPAM 0.5 MG TABLET PO PRN (21:03)
[2017-11-21] MEDS: DONEPEZIL 5 MG TABLET PO SCH (21:10)
[2017-11-21] MEDS: INSULIN GLARGINE, 100 UNIT/ML CARTRIDGE SQ SCH (21:18)
[2017-11-22] MEDS: BLOOD SUGAR DIAGNOSTIC 1 EACH STRIP IN SCH ×4 (07:30→21:30)
[2017-11-22 07:31] LABS: BASOPHILS % (AUTO) 0.7 % (0.0-2.0); EOSINOPHILS % (AUTO) 7.4 % (0.0-6.0); HEMATOCRIT 35 % (39-51); HEMOGLOBIN 11.5 g/dL (13.5-17.5); LYMPHOCYTES # (AUTO) 1.7 /CMM (0.8-4.8); LYMPHOCYTES % (AUTO) 31.2 % (20.0-44.0); MEAN CORPUSCULAR HEMOGLOBIN 31 PG (26.0-33.0); MEAN CORPUSCULAR HGB CONC 33 g/dl (31.0-36.0); MEAN CORPUSCULAR VOLUME 93 fL (80-96); MONOCYTES # (AUTO) 0.6 /CMM (0.1-1.30); MONOCYTES % (AUTO) 10.9 % (2.0-12.0); NEUTROPHILS # (AUTO) 2.8 /CMM (1.8-8.9); NEUTROPHILS % (AUTO) 49.8 % (43.0-81.0); PLATELET COUNT (AUTO) 296 /CMM (150-450); RDW COEFFICIENT OF VARIATION 14.7 (11.5-15.0); RED BLOOD CELL COUNT(AUTO) 3.73 MIL/uL (4.5-6.0); WHITE BLOOD COUNT (AUTO) 5.6 K/uL (4.3-11.0)
[2017-11-22 07:51] LABS: CALCIUM, SERUM 8.8 mg/dL (8.5-10.1); CARBON DIOXIDE 26 mmol/L (21-32); CHLORIDE 108 mmol/L (98-107); CREATININE 2.5 mg/dL (0.6-1.3); GLUCOSE 95 mg/dL (74-106); POTASSIUM 4.4 mmol/L (3.5-5.1); SODIUM SERUM 141 mmol/L (136-145); UREA NITROGEN, BLOOD 49 mg/dL (7-18)
[2017-11-22 08:00] VITALS: BP 126/64
[2017-11-22] MEDS: MEMANTINE HCL 5 MG TABLET PO SCH ×2 (09:15→16:58)
[2017-11-22] MEDS: ASCORBIC ACID 500 MG TABLET PO SCH (09:15)
[2017-11-22] MEDS: LOSARTAN POTASSIUM 50 MG TABLET PO SCH (09:15)
[2017-11-22] MEDS: QUETIAPINE FUMARATE 25 MG TABLET PO SCH ×3 (09:15→16:59)
[2017-11-22] MEDS: PANTOPRAZOLE 40 MG TABLET.DR PO SCH (09:15)
[2017-11-22] MEDS: SERTRALINE HCL 50 MG TABLET PO SCH (12:10)
[2017-11-22 16:00] VITALS: BP 135/78
[2017-11-22 20:00] VITALS: BP 150/84
[2017-11-22] MEDS: DONEPEZIL 5 MG TABLET PO SCH (21:31)
[2017-11-22] MEDS: TEMAZEPAM 7.5 MG CAPSULE PO PRN ×2 (21:31)
[2017-11-22] MEDS: INSULIN GLARGINE, 100 UNIT/ML CARTRIDGE SQ SCH (21:38)
[2017-11-23] MEDS: LORAZEPAM 0.5 MG TABLET PO PRN (00:36)
[2017-11-23] MEDS: BLOOD SUGAR DIAGNOSTIC 1 EACH STRIP IN SCH ×4 (07:36→22:40)
[2017-11-23 08:00] VITALS: BP 98/52
[2017-11-23] MEDS: PANTOPRAZOLE 40 MG TABLET.DR PO SCH (08:35)
[2017-11-23] MEDS: QUETIAPINE FUMARATE 25 MG TABLET PO SCH ×3 (08:41→17:37)
[2017-11-23] MEDS: MEMANTINE HCL 5 MG TABLET PO SCH ×2 (08:41→17:37)
[2017-11-23] MEDS: ASCORBIC ACID 500 MG TABLET PO SCH (08:41)
[2017-11-23] MEDS: SERTRALINE HCL 50 MG TABLET PO SCH (08:41)
[2017-11-23] MEDS: LOSARTAN POTASSIUM 25 MG TABLET PO SCH (08:42)
[2017-11-23] MEDS ORDERED: SERTRALINE HCL 50 MG TABLET PO SCH (13:00)
[2017-11-23 16:00] VITALS: BP 131/72
[2017-11-23 20:00] VITALS: BP 142/77
[2017-11-23] MEDS: TEMAZEPAM 7.5 MG CAPSULE PO PRN (22:01)
[2017-11-23] MEDS: DONEPEZIL 5 MG TABLET PO SCH (22:01)
[2017-11-23] MEDS: INSULIN GLARGINE, 100 UNIT/ML CARTRIDGE SQ SCH (22:40)
[2017-11-24] MEDS: LORAZEPAM 0.5 MG TABLET PO PRN ×2 (01:39→22:18)
[2017-11-24] MEDS: BLOOD SUGAR DIAGNOSTIC 1 EACH STRIP IN SCH ×4 (07:30→21:04)
[2017-11-24 08:00] VITALS: BP 119/67
[2017-11-24] MEDS: ASCORBIC ACID 500 MG TABLET PO SCH (08:55)
[2017-11-24] MEDS: SERTRALINE HCL 50 MG TABLET PO SCH (08:58)
[2017-11-24] MEDS: PANTOPRAZOLE 40 MG TABLET.DR PO SCH (08:59)
[2017-11-24] MEDS: MEMANTINE HCL 5 MG TABLET PO SCH ×2 (08:59→17:49)
[2017-11-24] MEDS: LOSARTAN POTASSIUM 25 MG TABLET PO SCH (09:00)
[2017-11-24] MEDS: QUETIAPINE FUMARATE 25 MG TABLET PO SCH ×3 (09:00→17:49)
[2017-11-24 16:00] VITALS: BP 116/64
[2017-11-24 16:26] LABS: BASOPHILS % (AUTO) 0.6 % (0.0-2.0); EOSINOPHILS % (AUTO) 6.5 % (0.0-6.0); HEMATOCRIT 33 % (39-51); LYMPHOCYTES # (AUTO) 1.5 /CMM (0.8-4.8); MEAN CORPUSCULAR HEMOGLOBIN 31 PG (26.0-33.0); MEAN CORPUSCULAR HGB CONC 33 g/dl (31.0-36.0); MEAN CORPUSCULAR VOLUME 93 fL (80-96); MONOCYTES # (AUTO) 0.6 /CMM (0.1-1.30); MONOCYTES % (AUTO) 10.5 % (2.0-12.0); NEUTROPHILS # (AUTO) 2.8 /CMM (1.8-8.9); NEUTROPHILS % (AUTO) 53.4 % (43.0-81.0); PLATELET COUNT (AUTO) 291 /CMM (150-450); RDW COEFFICIENT OF VARIATION 14.9 (11.5-15.0); RED BLOOD CELL COUNT(AUTO) 3.57 MIL/uL (4.5-6.0); WHITE BLOOD COUNT (AUTO) 5.3 K/uL (4.3-11.0)
[2017-11-24 17:01] LABS: CALCIUM, SERUM 8.2 mg/dL (8.5-10.1); CARBON DIOXIDE 24 mmol/L (21-32); CHLORIDE 107 mmol/L (98-107); CREATININE 3.1 mg/dL (0.6-1.3); GLUCOSE 125 mg/dL (74-106); PHOSPHORUS 4.8 mg/dL (2.5-4.9); POTASSIUM 4.5 mmol/L (3.5-5.1); SODIUM SERUM 139 mmol/L (136-145); UREA NITROGEN, BLOOD 58 mg/dL (7-18)
[2017-11-24 20:09] VITALS: BP 153/93
[2017-11-24] MEDS: DONEPEZIL 5 MG TABLET PO SCH (21:04)
[2017-11-24] MEDS: INSULIN GLARGINE, 100 UNIT/ML CARTRIDGE SQ SCH (21:21)
[2017-11-24] MEDS: TEMAZEPAM 7.5 MG CAPSULE PO PRN (21:25)
[2017-11-25 08:00] VITALS: BP 121/76
[2017-11-25] MEDS ORDERED: GLUCERNA SHAKE 237 ML CAN PO SCH (08:00)
[2017-11-25] MEDS: BLOOD SUGAR DIAGNOSTIC 1 EACH STRIP IN SCH ×2 (08:05→12:10)
[2017-11-25 08:58] VITALS: BP 121/76
[2017-11-25] MEDS: PANTOPRAZOLE 40 MG TABLET.DR PO SCH (08:58)
[2017-11-25] MEDS: LOSARTAN POTASSIUM 25 MG TABLET PO SCH (08:58)
[2017-11-25] MEDS: MEMANTINE HCL 5 MG TABLET PO SCH (08:58)
[2017-11-25] MEDS: ASCORBIC ACID 500 MG TABLET PO SCH (08:58)
[2017-11-25] MEDS: QUETIAPINE FUMARATE 25 MG TABLET PO SCH ×2 (08:58→12:15)
[2017-11-25] MEDS: SERTRALINE HCL 50 MG TABLET PO SCH (08:58)
[2017-11-25 13:17] LABS: CALCITRIOL VIT D,1, 25 DIHYDRO 24.5 pg/mL (19.9-79.3)
== END 2017-11-25 13:15 | DRG 885 ==
LOC: GPS 16:15
PROVIDERS: ADMIT Psychiatry & Neurology Psychiatry; ATTEND Psychiatry & Neurology Psychiatry
DX: F25.9 Schizoaffective disorder, unspecified (principal); F01.50 Vascular dementia, unspecified severity, without behavioral disturbance, psychotic disturbance, mood disturbance, and anxiety; N18.9 Chronic kidney disease, unspecified; N17.9 Acute kidney failure, unspecified; E11.22 Type 2 diabetes mellitus with diabetic chronic kidney disease; I12.9 Hypertensive chronic kidney disease with stage 1 through stage 4 chronic kidney disease, or unspecified chronic kidney disease; F03.90 Unspecified dementia, unspecified severity, without behavioral disturbance, psychotic disturbance, mood disturbance, and anxiety; Z79.899 Other long term (current) drug therapy; F32.9 Major depressive disorder, single episode, unspecified
CPT/HCPCS: 36415; 80048-TC; 80053-TC; 80061-TC; 82306; 82652; 82962-TC; 83735-TC; 83970; 84100-TC; 85025-TC; 87081-TC; J1815

== ENCOUNTER 2019-01-02 11:00 | Inpatient (IN) | payer MEDICARE, OTHER ==
[~2019-01-02] VITALS: Ht 165.1 cm; Wt 73.0 kg
[~2019-01-02 11:00] MED LIST changes: +ACET-868 GT; +AMIO200T4 GT; +ASCO500T8 GT; +CHLO473M2 MM; +DEXT50DI8 IV; +DONE10TA11 PO; +DONE10TA44 GT; -ESCI5TAB PO; -INSU100I19 SQ; -INSU100V11 SQ; +INSU100V3 SQ; +INSU100V30 IJ; +INSU100V7 SQ; +LACT1CAP61 GT; +MEMA10TA GT; +MEMA10TA PO; -MEMA1CAP2 PO; +MULT-447 PO; +Nepro GT; +PANT40SU2 GT; +Prosource GT; -QUET25TA PO; -QUET50TA PO; +SERT50TA GT
--- NOTE | 2019-01-02 11:11 | NUR ---
BIB PMS FROM SNF FOR FEVER AND LOW BLOOD PRESSURE. PATIENT OPEN EYES TO STIMULI, NON-VERBAL, ON TRACHE ON O2 AT 3LPM. CAME IN WITH BINDU PICC LINE, LCW PERMACATH, GTUBE PATENT, TOMAS CATHETER REPLACED DUE TO OLD BAG LEAKING. PATIENT KEPT COMFORTABLE, NEEDS ATTENDED. WILL CONTINUE TO MONITOR.
--- NOTE | 2019-01-02 11:20 | NUR ---
RECTAL TEMP 99.5. LAB DRAWN AND SENT TO LAB. NO URINE AT THIS TIME, WILL COLLECT. SEEN BY DR. MALLOY, RT AT BEDSIDE.
[2019-01-02] MEDS ORDERED: IV NS 0.9% 1,000 ML BAG IV ONE (11:30)
[2019-01-02] MEDS ORDERED: LOPE2CAP GT (11:31)
[2019-01-02] MEDS ORDERED: PANT40SU2 GT (11:31)
[2019-01-02] MEDS ORDERED: FOLI0.8T2 GT (11:31)
[2019-01-02] MEDS ORDERED: CHLO473M5 MM (11:31)
[2019-01-02] MEDS ORDERED: AMIN30LI2 GT (11:31)
[2019-01-02] MEDS ORDERED: PIPE2.255 IV (11:34)
[2019-01-02] MEDS ORDERED: VANC1VIA2 IV (11:34)
[2019-01-02 11:36] LABS: BASOPHILS # (AUTO) 0.2 /CMM (0.0-0.2); BASOPHILS % (AUTO) 0.5 % (0.0-2.0); HEMATOCRIT 28 % (39-51); HEMOGLOBIN 8.7 g/dL (13.5-17.5); LYMPHOCYTES # (AUTO) 1.4 /CMM (0.8-4.8); LYMPHOCYTES % (AUTO) 4.3 % (20.0-44.0); MEAN CORPUSCULAR HGB CONC 31 g/dl (31.0-36.0); MEAN CORPUSCULAR VOLUME 93 fL (80-96); MONOCYTES % (AUTO) 6.2 % (2.0-12.0); NEUTROPHILS # (AUTO) 27.6 /CMM (1.8-8.9); PLATELET COUNT (AUTO) 601 /CMM (150-450); RED BLOOD CELL COUNT(AUTO) 3.03 MIL/uL (4.5-6.0)
[2019-01-02] MEDS ORDERED: NUT.237L67 GT (11:36)
[2019-01-02 11:37] LABS: CALCIUM, SERUM 8.5 mg/dL (8.5-10.1); CARBON DIOXIDE 25 mmol/L (21-32); CHLORIDE 102 mmol/L (98-107); CREATININE 4.3 mg/dL (0.6-1.3); GLUCOSE 168 mg/dL (74-106); POTASSIUM 3.1 mmol/L (3.5-5.1); SODIUM SERUM 138 mmol/L (136-145); UREA NITROGEN, BLOOD 68 mg/dL (7-18)
[2019-01-02 11:39] LABS: WHITE BLOOD COUNT (AUTO) 31.7 K/uL (4.3-11.0)
[2019-01-02 11:43] LABS: ALANINE AMINOTRANSFERASE 37 U/L (12-78); ALBUMIN 2.1 g/dL (3.4-5.0); ALKALINE PHOSPHATASE 238 U/L (46-116); ASPARTATE AMINOTRANSFERASE 54 U/L (15-37); BILIRUBIN,DIRECT 0.2 mg/dL (0.0-0.2); BILIRUBIN,TOTAL 0.3 mg/dL (0.2-1.0); TOTAL PROTEIN, SERUM 6.4 g/dL (6.4-8.2)
[2019-01-02] MEDS ORDERED: IV NS 0.9% 500 ML BAG IV ONE (12:30)
--- NOTE | 2019-01-02 12:50 | NUR ---
CALLED FOR TELE BED, TURNED IN MOVE SHEET, AND PAGED [facility] ( [facility] )
[2019-01-02] MEDS ORDERED: PIPERACILLIN /TAZOBACTAM 3.375 G in IV D5W 50 ML IV ONE (13:00)
[2019-01-02] MEDS ORDERED: VANCOMYCIN 1 GM in IV D5W 250 ML IV ONE (13:00)
[2019-01-02 13:23] LABS: APPEARANCE,URINE Cloudy (CLEAR); BILIRUBIN,URINE SMALL (NEGATIVE); BLOOD, URINE Moderate Ery/uL (NEGATIVE); COLOR,URINE Yellow (YELLOW); KETONES,URINE Negative (NEGATIVE); LEUKOCYTE ESTERASE ,URINE Large (NEGATIVE); NITRITE, URINE Negative (NEGATIVE); PROTEIN,URINE 100 mg/dl (NEGATIVE); UGLUCOSE Negative (NEGATIVE); UROBILINOGEN,URINE 0.2 EU/dL (0.2)
[2019-01-02 13:32] LABS: BACTERIA,URINE Moderate /HPF (None Seen); SQUAMOUS EPITHELIAL CELL,UR Few /HPF (None Seen); WBC,URINE 20-50 /HPF (0-3); YEAST,URINE Moderate /HPF (None Seen)
[2019-01-02 13:44] LABS: BAND % (MANUAL) 3 % (0.0-5.0); EOSINOPHILS % (MANUAL) 5 % (0-4); LYMPHOCYTES % (MANUAL) 6 % (16-48); MONOCYTES % (MANUAL) 5 % (0-11.0); MYELOCYTES % 2 % (0-0); NEUTROPHILS % (MANUAL) 79 (42-76)
--- NOTE | 2019-01-02 13:50 | NUR ---
REPORT GIVEN TO SHORTY CHAN. PATIENT TRANSFERRED TO ROOM 325-1 VIA ACLS PROTOCOL. NO DISTRESS NOTED. VANCOMYCIN IV INFUSING.
--- NOTE | 2019-01-02 13:58 | NUR ---
RT NOTE PT TRANSPORTED TO ROOM 325-2 FROM ICU. PT HAS A SHILEY 8 DCT CUFFED TRACHEOSTOMY TUBE IN PLACE. PT PLACED ON CA SETUP AT 28% ON 5L FLOW. LARGE THIN YELLOW SECRETIONS FOUND UPON SUCTION. GUERITA HEARD UPON AUSCULTATION. NO DISTRESS NOTED. Addendum: 01/02/19 at 1400 by SEBAS MALLOY RT Amended: Links added.
[2019-01-02] MEDS ORDERED: INSULIN REGULAR, HUMAN 100 UNIT/ML 3 ML VIAL SQ PRN (14:00)
[2019-01-02] MEDS ORDERED: DEXTROSE 50%-WATER 50 ML DISP.SYRIN IV PRN (14:00)
[2019-01-02] MEDS ORDERED: MAG HYDROX/AL HYDROX/SIMETH 30 ML UDC PO PRN (14:00)
[2019-01-02] MEDS ORDERED: NEPRO VAN 237 ML CAN GT SCH (14:00)
[2019-01-02] MEDS ORDERED: MAGNESIUM HYDROXIDE 30 ML UDC PO PRN (14:00)
[2019-01-02] MEDS ORDERED: Z GUARD REMEDY 2 OZ OINT TP PRN (14:00)
[2019-01-02] MEDS ORDERED: ACETAMINOPHEN 325 MG TABLET PO PRN (14:00)
[2019-01-02] MEDS ORDERED: ONDANSETRON HCL/PF 4 MG/2 ML VIAL IVP PRN (14:00)
[2019-01-02] MEDS ORDERED: HYDROCODONE/APAP 5/325MG 1 EACH TABLET PO PRN (14:00)
[2019-01-02] MEDS ORDERED: ZOLPIDEM TARTRATE 5 MG TABLET PO PRN (14:00)
[2019-01-02] MEDS ORDERED: FEE PK DOSING 1 MIN EA MC ONE (14:03)
[2019-01-02 14:30] VITALS: BP 108/53
--- NOTE | 2019-01-02 14:58 | NUR ---
RN OPENING NOTES Received patient on cool aerosol 28%, shiley 8 dct, no sob noted. Patient shows no s/s of pain at this time. Patient remains a/o x1, feeding is on at 1400 and off at 0600. Patient remains with right upper picc line, left chest wall perma cath for HD access. bed at the lowest setting, call light within reach, side rails up x2.
[2019-01-02] MEDS: IV D5/ 0.9% NACL 1,000 ML IV PRN (15:25)
[2019-01-02 16:00] VITALS: BP 94/42
[2019-01-02] MEDS ORDERED: NEPRO 1,000 ML BOTTLE GT SCH (16:30)
[2019-01-02] MEDS: PROSOURCE / PROSTAT (PYXIS) 30 ML UDC GT SCH (17:00)
[2019-01-02] MEDS: MEMANTINE HCL 5 MG TABLET GT SCH (17:27)
[2019-01-02] MEDS: CEFEPIME 1 GM in IV D5W 50 ML IV SCH (17:31)
[2019-01-02] MEDS ORDERED: CEFEPIME 1 GM in IV NS 0.9% 50 ML IV SCH (18:00)
[2019-01-02] MEDS: NEPRO 1,000 ML BOTTLE GT PRN (18:24)
--- NOTE | 2019-01-02 18:33 | NUR ---
RN MS NOTES Patient's feeding started at 65 mL per hour, around 1830. Minimal residuals noted.
--- NOTE | 2019-01-02 19:30 | NUR ---
BEARING PRESS MACHINE OPERATOR OPENING NOTES Received patient on cool aerosol 28%, no SOB/respiratory distress noted. On Tele monitoring with SR noted. HD Nurse at bedside to perform the procedure as ordered. Consent witnessed with co-RN Shakir from the daughter. Will continue to monitor accordingly.
[2019-01-02 20:00] VITALS: BP 89/62
[2019-01-02] MEDS: LACTOBACILLUS RHAMNOSUS GG 1 EACH CAP.SPRINK GT SCH (21:04)
[2019-01-02] MEDS: CHLORHEXIDINE GLUCONATE 15 ML UDC MM SCH (21:05)
[2019-01-02] MEDS ORDERED: Medication Not On Formulary EA (Donepezil Hcl 10 MG) GT SCH (22:00)
--- NOTE | 2019-01-02 22:00 | NUR ---
NUTRITION CLUB AMBASSADOR NOTES S/P HD, no output noted. Pt received Vanco at ER, S/P vanco held at this time. During dialysis SBP remains on the 80s, in stable condition. Kept patient on bed, clean, dry and comfortable. Call light within easy reach. Will continue to monitor accordingly.
[2019-01-03] VITALS: BP 93/43
[2019-01-03] MEDS: IV D5/ 0.9% NACL 1,000 ML IV PRN ×3 (01:09→23:58)
[2019-01-03 04:00] VITALS: BP 94/48
--- NOTE | 2019-01-03 06:55 | NUR ---
SUPERVISOR POST WAVE CLOSING NOTES Patient asleep, on cool aerosol 28%. No respiratory distress noted at this time. With GTF tolerated well. No new unusualities noted throughout the shift. All nursing needs attended. Kept on bed clean, dry and comfortable. Repositioned Q2H and PRN. Call light within easy reach. Endorsed to the next shift. Addendum: 01/03/19 at 0659 by HENRRY ALEJANDRA RN ON TELE MONITOR WITH SR RHYTHM NOTED.
[2019-01-03 07:24] LABS: BASOPHILS # (AUTO) 0.1 /CMM (0.0-0.2); BASOPHILS % (AUTO) 0.5 % (0.0-2.0); EOSINOPHILS % (AUTO) 2.5 % (0.0-6.0); HEMATOCRIT 23 % (39-51); HEMOGLOBIN 7.3 g/dL (13.5-17.5); LYMPHOCYTES # (AUTO) 1.3 /CMM (0.8-4.8); LYMPHOCYTES % (AUTO) 5.7 % (20.0-44.0); MEAN CORPUSCULAR HGB CONC 32 g/dl (31.0-36.0); MEAN CORPUSCULAR VOLUME 92 fL (80-96); MONOCYTES # (AUTO) 1.4 /CMM (0.1-1.30); MONOCYTES % (AUTO) 6.4 % (2.0-12.0); NEUTROPHILS # (AUTO) 19.2 /CMM (1.8-8.9); NEUTROPHILS % (AUTO) 84.9 % (43.0-81.0); PLATELET COUNT (AUTO) 530 /CMM (150-450); RED BLOOD CELL COUNT(AUTO) 2.47 MIL/uL (4.5-6.0); WHITE BLOOD COUNT (AUTO) 22.6 K/uL (4.3-11.0)
--- NOTE | 2019-01-03 07:26 | NUR ---
RN OPENING NOTE PT WAS RECEIEVED IN BED IN LOWEST AND LOCKED POSITION WITH SIDE RAILS UP X2, A/O X1 ON COOL AEROSOL AT 5LPM WITH O2 SAT OF 100%, NO S/S OF ANY DISTRESS OR PAIN NOTED AT THIS TIME, ON TELE MONITOR SHOWING SR 70'S, GTUBE IN PLACE WITH FEEDING CURRENTLY ON HOLD, IV IS PATENT AND INTACT, PER NIGHT RN PT HAD HD LAST NIGHT WITH NO OUTPUT, SAFETY PRECAUTIONS IN PLACE, CALL LIGHT WITHIN REACH, WILL MONITOR PT ACCORDINGLY
[2019-01-03] MEDS ORDERED: BLOOD SUGAR DIAGNOSTIC 1 EACH STRIP IN SCH (07:30)
[2019-01-03 07:37] LABS: CHOLESTEROL 100 mg/dL (<200); HDL CHOLESTEROL 30 mg/dL (40-60); LDL 62 mg/dL (0-99); TRIGLYCERIDES 82 mg/dL (30-150)
[2019-01-03 07:38] LABS: CALCIUM, SERUM 7.6 mg/dL (8.5-10.1); CARBON DIOXIDE 25 mmol/L (21-32); CHLORIDE 105 mmol/L (98-107); CREATININE 3.8 mg/dL (0.6-1.3); GLUCOSE 258 mg/dL (74-106); MAGNESIUM 2.1 mg/dL (1.8-2.4); PHOSPHORUS 2.3 mg/dL (2.5-4.9); POTASSIUM 3.4 mmol/L (3.5-5.1); SODIUM SERUM 140 mmol/L (136-145); UREA NITROGEN, BLOOD 54 mg/dL (7-18)
[2019-01-03 08:00] VITALS: BP 100/45
[2019-01-03] MEDS: MEMANTINE HCL 5 MG TABLET GT SCH ×2 (08:18→16:51)
[2019-01-03] MEDS: PANTOPRAZOLE 40 MG/PACK PACK GT SCH (08:18)
[2019-01-03] MEDS: ASCORBIC ACID 500 MG TABLET GT SCH (08:18)
[2019-01-03] MEDS: LACTOBACILLUS RHAMNOSUS GG 1 EACH CAP.SPRINK GT SCH ×2 (08:18→21:38)
[2019-01-03] MEDS: CHLORHEXIDINE GLUCONATE 15 ML UDC MM SCH ×2 (08:18→21:38)
[2019-01-03] MEDS: VIT B CMPLX 3/FA/VIT C/BIOTIN 1 TAB TABLET GT SCH (08:18)
[2019-01-03] MEDS: SERTRALINE HCL 50 MG TABLET GT SCH (08:18)
[2019-01-03] MEDS: AMIODARONE HCL 200 MG TABLET GT SCH (08:19)
[2019-01-03] MEDS: PROSOURCE / PROSTAT (PYXIS) 30 ML UDC GT SCH ×2 (08:20→16:51)
[2019-01-03] MEDS ORDERED: DEXTROSE 50%-WATER 50 ML DISP.SYRIN IV PRN (08:30)
[2019-01-03 09:43] LABS: BAND % (MANUAL) 5 % (0.0-5.0); EOSINOPHILS % (MANUAL) 2 % (0-4); LYMPHOCYTES % (MANUAL) 5 % (16-48); MONOCYTES % (MANUAL) 3 % (0-11.0); MYELOCYTES % 3 % (0-0); NEUTROPHILS % (MANUAL) 82 (42-76)
[2019-01-03] MEDS: INSULIN REGULAR, HUMAN 100 UNIT/ML 3 ML VIAL SQ PRN ×2 (12:07→17:13)
[2019-01-03] MEDS: BLOOD SUGAR DIAGNOSTIC 1 EACH STRIP IN SCH ×2 (12:15→17:14)
[2019-01-03 16:00] VITALS: BP 137/65
[2019-01-03] MEDS: CEFEPIME 1 GM in IV D5W 50 ML IV SCH (17:11)
--- NOTE | 2019-01-03 18:00 | NUR ---
RN NOTE GTUBE WAS CHECKED FOR RESIDUALS AT THIS TIME WITH MINIMAL RESIDUAL NOTED
--- NOTE | 2019-01-03 18:26 | NUR ---
RN CLOSING NOTE PT IN BED IN LOWEST AND LOCKED POSITION WITH SIDE RAILS UP X2, A/O X1-2 ON COOL AEROSOL AT 5LPM, NO S/S OF ANY DISTRESS OR PAIN NOTED AT THIS TIME, GTUBE FEEDING RUNNING WITH MINIMAL RESIDUALS NOTED, IV IS PATENT AND INTACT, SAFETY PRECAUTIONS IN PLACE, CALL LIGHT WITHIN REACH, ALL NEEDS ATTENDED TOO, WILL ENDORSE TO NIGHT RN FOR COURTNEY.
--- NOTE | 2019-01-03 19:20 | NUR ---
CHANGE OF SHIFT REPORT Patient in bed awake, no verbal. Trach intact, oxygen with cool aerosol. Gtube in place, minimal gastric residual, Maintained upright head position. Perma cath Left chest wall dressing C/D/I. Fal precautions maintained. IVF infusing.
[2019-01-03 20:00] VITALS: BP 114/59
[2019-01-03] MEDS: NEPRO 1,000 ML BOTTLE GT PRN (21:33)
[2019-01-04] MEDS: BLOOD SUGAR DIAGNOSTIC 1 EACH STRIP IN SCH ×4 (00:02→17:34)
[2019-01-04] MEDS: INSULIN REGULAR, HUMAN 100 UNIT/ML 3 ML VIAL SQ PRN ×4 (00:05→17:37)
--- NOTE | 2019-01-04 06:22 | NUR ---
END OF SHIFT REPORT Patient in bed, non verbal. Trach intact, oxygen to cool aerosol 28% tolerating well. Suction secretion PRN. IVF infusing, Gtube feeding OFF at 0600am as per order. Turning schedule followed, sacral wound dressing changed, offload heels at all times, awaits wound consult. Left chest wall HD cath intact, dressing C/D/I. Sosa cath to gravity. Afebrile, no acute events overnight. Fall, aspiration precautions maintained.
--- NOTE | 2019-01-04 07:32 | NUR ---
RN MS OPENING NOTES Patient received on cool aerosol 28%, no sob noted. Patient remains non verbal, a/o x1. Sosa patent and is draining, feeding OFF at this time and will be on at 1400. D5 NS @ 100 mL per hour, left chest wall perma cath remains present at this time. Awaiting for wound consult. Bed at the lowest setting, call light within reach, side rails up x2.
[2019-01-04 08:00] VITALS: BP 113/49
[2019-01-04 08:00] LABS: BASOPHILS # (AUTO) 0.1 /CMM (0.0-0.2); BASOPHILS % (AUTO) 0.5 % (0.0-2.0); EOSINOPHILS % (AUTO) 3.1 % (0.0-6.0); HEMATOCRIT 23 % (39-51); HEMOGLOBIN 7.3 g/dL (13.5-17.5); LYMPHOCYTES # (AUTO) 1.5 /CMM (0.8-4.8); LYMPHOCYTES % (AUTO) 8.4 % (20.0-44.0); MEAN CORPUSCULAR HGB CONC 32 g/dl (31.0-36.0); MEAN CORPUSCULAR VOLUME 91 fL (80-96); MONOCYTES # (AUTO) 1.4 /CMM (0.1-1.30); MONOCYTES % (AUTO) 7.6 % (2.0-12.0); NEUTROPHILS # (AUTO) 14.3 /CMM (1.8-8.9); NEUTROPHILS % (AUTO) 80.4 % (43.0-81.0); PLATELET COUNT (AUTO) 538 /CMM (150-450); WHITE BLOOD COUNT (AUTO) 17.7 K/uL (4.3-11.0)
[2019-01-04] MEDS: MEMANTINE HCL 5 MG TABLET GT SCH ×2 (08:18→16:45)
[2019-01-04] MEDS: VIT B CMPLX 3/FA/VIT C/BIOTIN 1 TAB TABLET GT SCH (08:18)
[2019-01-04] MEDS: ASCORBIC ACID 500 MG TABLET GT SCH (08:18)
[2019-01-04] MEDS: PANTOPRAZOLE 40 MG/PACK PACK GT SCH (08:18)
[2019-01-04] MEDS: AMIODARONE HCL 200 MG TABLET GT SCH (08:18)
[2019-01-04] MEDS: CHLORHEXIDINE GLUCONATE 15 ML UDC MM SCH ×2 (08:19→21:29)
[2019-01-04] MEDS: SERTRALINE HCL 50 MG TABLET GT SCH (08:19)
[2019-01-04] MEDS: PROSOURCE / PROSTAT (PYXIS) 30 ML UDC GT SCH ×2 (08:19→16:44)
[2019-01-04] MEDS: LACTOBACILLUS RHAMNOSUS GG 1 EACH CAP.SPRINK GT SCH ×2 (08:19→21:29)
[2019-01-04 08:21] LABS: CALCIUM, SERUM 7.5 mg/dL (8.5-10.1); CARBON DIOXIDE 24 mmol/L (21-32); CHLORIDE 107 mmol/L (98-107); CREATININE 4.3 mg/dL (0.6-1.3); GLUCOSE 229 mg/dL (74-106); SODIUM SERUM 142 mmol/L (136-145); UREA NITROGEN, BLOOD 62 mg/dL (7-18)
[2019-01-04 08:26] LABS: POTASSIUM 2.8 mmol/L (3.5-5.1)
[2019-01-04] MEDS: VANCOMYCIN 500 MG in IV D5W 100 ML IV PRN (15:50)
[2019-01-04 16:15] VITALS: BP 120/58
[2019-01-04 17:31] LABS: ALBUMIN 1.7 g/dL (3.4-5.0); BILIRUBIN,DIRECT 0.1 mg/dL (0.0-0.2); BILIRUBIN,TOTAL 0.2 mg/dL (0.2-1.0); TOTAL PROTEIN, SERUM 5.6 g/dL (6.4-8.2)
[2019-01-04] MEDS: CEFEPIME 1 GM in IV D5W 50 ML IV SCH (17:31)
--- NOTE | 2019-01-04 18:02 | NUR ---
RN MS CLOSING NOTES Patient remains on C/A 28%, Shiley 8 dct, no sob noted, vital signs stable all shift, no s/s of pain at this time. Patient remains on diaper and fishman, draining well. Patient has NEPRO feeding @ 65 ml per hour, started at 1400 and will end at 0600. HD today, cleaning only, nothing drained. Bed at the lowest setting, call light within reach, side rails up x2. Will give report to NOC RN for COURTNEY bedside.
--- NOTE | 2019-01-04 19:10 | NUR ---
MS RN NOTES RECEIVED PT IN BED AND AWAKE. PT A/O X1 AND NON-VERBAL. RESPIRATIONS EVEN AND UNLABORED WITH NO S/S OF ACUTE DISTRESS OR SOB NOTED. PT ON COOL AEROSOL 28% AND TOLERATING WELL. PT WITH FC AND DRAINING WELL. PT WITH GT AND TOLERATING WELL. NO S/S OF PAIN AT THIS TIME. PT WITH LCHEST WALL PERMA CATH. SAFETY MEASURES IN PLACE WITH BED IN LOWEST LOCKED POSITION WITH SIDE RAILS UP X2. CALL LIGHT WITHIN REACH. WILL CONTINUE TO MONITOR.
[2019-01-04 20:14] VITALS: BP 126/80
[2019-01-05] MEDS: BLOOD SUGAR DIAGNOSTIC 1 EACH STRIP IN SCH ×4 (01:17→17:41)
[2019-01-05] MEDS: INSULIN REGULAR, HUMAN 100 UNIT/ML 3 ML VIAL SQ PRN ×3 (01:18→18:45)
[2019-01-05 06:42] LABS: BASOPHILS # (AUTO) 0.1 /CMM (0.0-0.2); BASOPHILS % (AUTO) 0.6 % (0.0-2.0); EOSINOPHILS % (AUTO) 3.4 % (0.0-6.0); HEMATOCRIT 21 % (39-51); HEMOGLOBIN 7.1 g/dL (13.5-17.5); LYMPHOCYTES # (AUTO) 1.5 /CMM (0.8-4.8); LYMPHOCYTES % (AUTO) 8.8 % (20.0-44.0); MEAN CORPUSCULAR HGB CONC 33 g/dl (31.0-36.0); MEAN CORPUSCULAR VOLUME 91 fL (80-96); MONOCYTES # (AUTO) 1.4 /CMM (0.1-1.30); MONOCYTES % (AUTO) 8.2 % (2.0-12.0); NEUTROPHILS # (AUTO) 13.1 /CMM (1.8-8.9); PLATELET COUNT (AUTO) 517 /CMM (150-450); RED BLOOD CELL COUNT(AUTO) 2.33 MIL/uL (4.5-6.0); WHITE BLOOD COUNT (AUTO) 16.6 K/uL (4.3-11.0)
[2019-01-05 06:50] LABS: CALCIUM, SERUM 7.5 mg/dL (8.5-10.1); CARBON DIOXIDE 26 mmol/L (21-32); CHLORIDE 107 mmol/L (98-107); CREATININE 3.1 mg/dL (0.6-1.3); GLUCOSE 205 mg/dL (74-106); SODIUM SERUM 143 mmol/L (136-145); UREA NITROGEN, BLOOD 43 mg/dL (7-18)
--- NOTE | 2019-01-05 06:51 | NUR ---
MS RN NOTES SLIDING SCALE INSULIN HELD FOR PT NPO AND OFF GT FEEDING UNTIL AFTERNOON.
[2019-01-05 06:55] LABS: POTASSIUM 2.8 mmol/L (3.5-5.1)
--- NOTE | 2019-01-05 07:50 | NUR ---
MS RN NOTES PT IN BED AND AWAKE. PT A/O X1 AND NON-VERBAL. RESPIRATIONS EVEN AND UNLABORED WITH NO S/S OF ACUTE DISTRESS OR SOB NOTED THROUGHOUT SHIFT. PT ON COOL AEROSOL 28% AND TOLERATING WELL. PT WITH FC AND DRAINING WELL. PT WITH GT AND TOLERATING WELL. NO S/S OF PAIN AT THIS TIME. PT KEPT CLEAN, DRY, AND COMFORTABLE. PT TURNED Q2 HRS. PT WITH LCHEST WALL PERMA CATH. SAFETY MEASURES IN PLACE WITH BED IN LOWEST LOCKED POSITION WITH SIDE RAILS UP X2. CALL LIGHT WITHIN REACH. WILL ENDORSE TO ONCOMING NURSE FOR COURTNEY.
--- NOTE | 2019-01-05 08:00 | NUR ---
MS RN OPENING NOTES Received Patient resting and asleep in bed. A/O x 1, non-verbal. VS stable with no acute distress. Trachea in place and operational. Breathing even and unlabored on 5LPM via trachea with SPO2 at 100%No signs and symptoms of pain at this time. Sosa Cath in place and operational with clear yellow output noted. G-tube in place and operational and flushing well. BINDU PICC clean, dry, intact and flushing well. LCW PermaCath in place, clean, dry and intact. Safety precautions in place. Bed locked and set to lowest position with side rails x 2 up. Call light within reach. Will continue to monitor.
[2019-01-05 08:20] VITALS: BP 114/52
[2019-01-05] MEDS: LACTOBACILLUS RHAMNOSUS GG 1 EACH CAP.SPRINK GT SCH ×2 (09:48→21:40)
[2019-01-05] MEDS: AMIODARONE HCL 200 MG TABLET GT SCH (09:48)
[2019-01-05] MEDS: VIT B CMPLX 3/FA/VIT C/BIOTIN 1 TAB TABLET GT SCH (09:49)
[2019-01-05] MEDS: CHLORHEXIDINE GLUCONATE 15 ML UDC MM SCH ×2 (09:49→21:39)
[2019-01-05] MEDS: ASCORBIC ACID 500 MG TABLET GT SCH (09:49)
[2019-01-05] MEDS: PANTOPRAZOLE 40 MG/PACK PACK GT SCH (09:49)
[2019-01-05] MEDS: MEMANTINE HCL 5 MG TABLET GT SCH ×2 (09:49→17:41)
[2019-01-05] MEDS: PROSOURCE / PROSTAT (PYXIS) 30 ML UDC GT SCH ×2 (09:49→17:41)
[2019-01-05] MEDS: POTASSIUM CHLORIDE 20 MEQ POWDER PACKET GT SCH (09:49)
[2019-01-05] MEDS: SERTRALINE HCL 50 MG TABLET GT SCH (09:49)
[2019-01-05] MEDS: NEOMY SULF/BACITRAC ZN/POLY 15 GM TUBE TP SCH (13:30)
[2019-01-05] MEDS ORDERED: SILVER NITRATE APPLICATOR 1 EA BOX TP ONE (14:30)
[2019-01-05] MEDS ORDERED: LIDOCAINE 1%-EPI 1:100,000 50 ML VIAL IJ ONE (14:30)
[2019-01-05] MEDS: CEFEPIME 1 GM in IV D5W 50 ML IV SCH (17:41)
--- NOTE | 2019-01-05 18:49 | NUR ---
MS RN CLOSING NOTES Patient resting and watching TV in bed. A/O x 1, non-verbal. VS stable with no acute distress. Trachea in place and operational. Breathing even and unlabored on 5LPM via trachea with SPO2 at 100%. No signs and symptoms of pain at this time. Sosa Cath in place and operational with clear yellow output noted. G-tube in place and operational and flushing well with Nephro running at 60ml/hr. BINDU PICC clean, dry, intact and flushing well. LCW PermaCath in place, clean, dry and intact. Safety precautions in place. Bed locked and set to lowest position with side rails x 2 up. Call light within reach. Will endorse plan of care to oncoming shift.
--- NOTE | 2019-01-05 19:15 | NUR ---
MS RN NOTES RECEIVED PT IN BED AND AWAKE WITH FAMILY AT BEDSIDE. PT A/O X1 AND NON-VERBAL. RESPIRATIONS EVEN AND UNLABORED WITH NO S/S OF ACUTE DISTRESS OR SOB NOTED. PT ON COOL AEROSOL 28% AND TOLERATING WELL. PT WITH FC AND DRAINING WELL. PT WITH GT AND TOLERATING WELL. NO S/S OF PAIN AT THIS TIME. PT WITH LCHEST WALL PERMA CATH. SAFETY MEASURES IN PLACE WITH BED IN LOWEST LOCKED POSITION WITH SIDE RAILS UP X2. CALL LIGHT WITHIN REACH. WILL CONTINUE TO MONITOR.
[2019-01-05 20:00] VITALS: BP 109/45
[2019-01-05] MEDS: NEPRO 1,000 ML BOTTLE GT PRN (20:08)
[2019-01-06] MEDS: BLOOD SUGAR DIAGNOSTIC 1 EACH STRIP IN SCH ×4 (00:22→17:31)
[2019-01-06] MEDS: INSULIN REGULAR, HUMAN 100 UNIT/ML 3 ML VIAL SQ PRN ×3 (00:24→17:32)
--- NOTE | 2019-01-06 01:30 | NUR ---
RN NOTES RECEIVED ENDORSEMENT FROM ROCIO CORDOVA FOR Pt's COURTNEY. WILL CONTINUE TO MONITOR Pt's CONDITION AND SAFETY FOR THE REMAINDER OF THE SHIFT.
--- NOTE | 2019-01-06 06:30 | NUR ---
RN NOTES BG 181. GTUBE FEEDING OFF AT 0600. WILL NOT BE BACK ON TILL 1400. DID NOT ADMINISTER INSULIN COVERAGE AT THIS TIME.
[2019-01-06 06:40] LABS: CALCIUM, SERUM 7.9 mg/dL (8.5-10.1); CARBON DIOXIDE 24 mmol/L (21-32); CHLORIDE 107 mmol/L (98-107); CREATININE 3.8 mg/dL (0.6-1.3); GLUCOSE 195 mg/dL (74-106); POTASSIUM 3.4 mmol/L (3.5-5.1); SODIUM SERUM 143 mmol/L (136-145); UREA NITROGEN, BLOOD 59 mg/dL (7-18)
--- NOTE | 2019-01-06 06:52 | NUR ---
RN CLOSING NOTES NO SIGNIFICANT CHANGES IN Pt's CONDITION. Pt REMAINS STABLE AT THIS TIME. NO S/S OF ACUTE DISTRESS OR SOB NOTED DURING THE NIGHT. Pt IS RESTING IN BED WITH UNLABORED RESPIRATIONS, WITH EQUAL CHEST RISE AND FALL. ALL NEEDS MET AND ATTENDED TO. SAFETY MEASURES IN PLACE. WILL ENDORSE TO DAYSHIFT RN FOR Pt's COURTNEY.
[2019-01-06 07:11] LABS: BASOPHILS # (AUTO) 0.1 /CMM (0.0-0.2); BASOPHILS % (AUTO) 0.6 % (0.0-2.0); EOSINOPHILS % (AUTO) 4.1 % (0.0-6.0); HEMATOCRIT 23 % (39-51); HEMOGLOBIN 7.5 g/dL (13.5-17.5); LYMPHOCYTES # (AUTO) 1.9 /CMM (0.8-4.8); LYMPHOCYTES % (AUTO) 9.6 % (20.0-44.0); MEAN CORPUSCULAR HGB CONC 33 g/dl (31.0-36.0); MEAN CORPUSCULAR VOLUME 91 fL (80-96); MONOCYTES # (AUTO) 1.5 /CMM (0.1-1.30); MONOCYTES % (AUTO) 7.4 % (2.0-12.0); NEUTROPHILS # (AUTO) 15.5 /CMM (1.8-8.9); NEUTROPHILS % (AUTO) 78.3 % (43.0-81.0); PLATELET COUNT (AUTO) 559 /CMM (150-450); RED BLOOD CELL COUNT(AUTO) 2.53 MIL/uL (4.5-6.0); WHITE BLOOD COUNT (AUTO) 19.8 K/uL (4.3-11.0)
[2019-01-06 08:00] VITALS: BP 106/52
--- NOTE | 2019-01-06 08:00 | NUR ---
m/s granulizing machine operator: initial assessment received pt in bed with eyes open. tracheostomy intact and secured at midline with fio2 in use at 28%. hob elevated. g-tube clamped at this time. feeding to be on at 1400 as ordered. g-tube patent with no residual obtained. suctioned prn. no s/s of discomfort. will continue to monitor.
--- NOTE | 2019-01-06 08:10 | NUR ---
WOUND CARE CONSULT WOUND CARE RECEIVED CONSULT FOR SACRAL AND BILATERAL HEEL WOUNDS. WOUND CARE WILL DEFER CONSULT AND TREATMENT PLANS TO PLASTIC SURGICAL TEAM INCLUDING DMP DR ELIAS WHO HAS BEEN NOTIFIED OF CONSULT. PATIENT WITH AUDREY AT 10, ALL PRESSURE ULCER PREVENTION MEASURES ARE NOTED TO BE IN PLACE AT THIS TIME. WILL SEE PRN.
[2019-01-06] MEDS: AMIODARONE HCL 200 MG TABLET GT SCH (08:50)
[2019-01-06] MEDS: PANTOPRAZOLE 40 MG/PACK PACK GT SCH (08:54)
[2019-01-06] MEDS: MEMANTINE HCL 5 MG TABLET GT SCH ×2 (08:54→17:01)
[2019-01-06] MEDS: LACTOBACILLUS RHAMNOSUS GG 1 EACH CAP.SPRINK GT SCH ×2 (08:54→21:12)
[2019-01-06] MEDS: CHLORHEXIDINE GLUCONATE 15 ML UDC MM SCH ×2 (08:54→21:12)
[2019-01-06] MEDS: POTASSIUM CHLORIDE 20 MEQ POWDER PACKET GT SCH (08:54)
[2019-01-06] MEDS: ASCORBIC ACID 500 MG TABLET GT SCH (08:54)
[2019-01-06] MEDS: VIT B CMPLX 3/FA/VIT C/BIOTIN 1 TAB TABLET GT SCH (08:54)
[2019-01-06] MEDS: SERTRALINE HCL 50 MG TABLET GT SCH (08:54)
[2019-01-06] MEDS: PROSOURCE / PROSTAT (PYXIS) 30 ML UDC GT SCH ×2 (08:56→17:01)
--- NOTE | 2019-01-06 09:25 | NUR ---
m/s senior linux engineer: nephro f/u seen by dr. koch and pt for hd tx today per .
[2019-01-06 09:33] LABS: BAND % (MANUAL) 1 % (0.0-5.0); EOSINOPHILS % (MANUAL) 6 % (0-4); LYMPHOCYTES % (MANUAL) 7 % (16-48); MONOCYTES % (MANUAL) 4 % (0-11.0); MYELOCYTES % 2 % (0-0); NEUTROPHILS % (MANUAL) 80 (42-76)
[2019-01-06] MEDS: NEOMY SULF/BACITRAC ZN/POLY 15 GM TUBE TP SCH (10:44)
--- NOTE | 2019-01-06 11:00 | NUR ---
m/s materials manager: notes am care rendered by staff. wound care rendered. turned and repositioned. kept comfortable. hob elevated. will continue to monitor.
--- NOTE | 2019-01-06 11:39 | NUR ---
m/s household cook: notes g-tube feeding remains off; feeding to be on at 1400 as ordered. bs sandr=180, insulin not given due to npo at this time. will continue to monitor.
--- NOTE | 2019-01-06 11:45 | NUR ---
m/s returned goods repairer: notes jade (hd nurse) here and preparing pt for hd tx at this time. labs provided to jade. will continue to monitor.
--- NOTE | 2019-01-06 13:45 | NUR ---
m/s sample builder: activity aide consult seen and examined by dr. sanchez with tx order. tx done by md. perry heel offload with pillow. will continue to monitor.
--- NOTE | 2019-01-06 14:20 | NUR ---
m/s compressor engineer: notes mary (p.a.) here and wants to change her consent to serial debridement sacrum and bilateral buttocks. place a call to sourav (daughter) and spoke to her over the phone with mary explaining the procedure and received telephone consent.
--- NOTE | 2019-01-06 14:45 | NUR ---
m/s communication analyst: plastic surgeon f/u mary (radha) at bedside for serial debridement to sacrum and bilateral buttocks wound, radha. well. kept comfortable. wound care done by p.a. after debridement.
[2019-01-06 15:00] VITALS: BP 114/60
--- NOTE | 2019-01-06 15:00 | NUR ---
m/s traditional chinese herbalist: notes hd completed with 1500 removed per jade (hd nurse). vss. feeding started after sacral wound debridement. hob elevated.
[2019-01-06 16:00] VITALS: BP 109/56
[2019-01-06] MEDS: VANCOMYCIN 500 MG in IV D5W 100 ML IV PRN (16:01)
[2019-01-06] MEDS: DAKINS QUARTER STRENGTH (0.125%) 480 ML BOTTLE TOP SCH (17:02)
--- NOTE | 2019-01-06 17:02 | NUR ---
m/s commanding officer homicide squad: notes dakin's solution still not delivered at this time. initial tx done by mary after sacral debridement done. will continue to monitor.
[2019-01-06] MEDS: CEFEPIME 1 GM in IV D5W 50 ML IV SCH (17:36)
--- NOTE | 2019-01-06 18:36 | NUR ---
m/s school bus driver/custodian: notes in bed with eyes open. no distress noted. hob elevated. g-tube feeding tolerating well. no residual obtained. needs attended. will continue to monitor.
--- NOTE | 2019-01-06 19:45 | NUR ---
RN OPENING NOTES RECEIVED REPORT FROM SHRUTHINJODALYS TREVINO. FOUND Pt RESTING IN BED. Pt IS ON COOL AEROSOL TRACH, WITH SHILEY #8. NO S/S OF ACUTE DISTRESS OR SOB NOTED. Pt IS A/OX1, ABLE TO MOUTH WORDS AND NOD TO SIMPLE YES OR NO QUESTIONS; UNDERSTANDS DUTCH. Pt IS S/P SACRAL WOUND DEBRIDEMENT TODAY. IV ACCESS ON BINDU PICC LINE, SL & LCW HD PERMA-CATH. SAFETY MEASURES IN PLACE. BED LOW, LOCKED, HOB ELEVATED, SIDE RAILS UP, CALL LIGHT AND BEDSIDE TABLE WITHIN REACH. WILL CONTINUE TO MONITOR Pt's CONDITION AND SAFETY THROUGHOUT THE NIGHT.
[2019-01-06 20:00] VITALS: BP 121/62
[2019-01-06] MEDS: MICAFUNGIN SODIUM 100 MG in IV NS 0.9% 100 ML IV SCH (21:12)
--- NOTE | 2019-01-07 | NUR ---
RN NOTES 0000 ACCUCHECK 162. ADMINISTERED 3UN OF INSULIN PER SLIDING SCALE. ON GTF.
[2019-01-07] MEDS: BLOOD SUGAR DIAGNOSTIC 1 EACH STRIP IN SCH ×5 (00:43→23:30)
[2019-01-07] MEDS: INSULIN REGULAR, HUMAN 100 UNIT/ML 3 ML VIAL SQ PRN ×3 (00:55→23:33)
[2019-01-07] MEDS: NEPRO 1,000 ML BOTTLE GT PRN (01:35)
--- NOTE | 2019-01-07 06:00 | NUR ---
RN NOTES 0600 [address] 150. HELD INSULIN COVERAGE AT THIS TIME DUE TO GTUBE FEEDING BEING OFF AT 0600. GTF WILL RESUME AT 1400.
[2019-01-07 06:22] LABS: BASOPHILS # (AUTO) 0.1 /CMM (0.0-0.2); BASOPHILS % (AUTO) 0.5 % (0.0-2.0); EOSINOPHILS % (AUTO) 4.1 % (0.0-6.0); HEMATOCRIT 25 % (39-51); LYMPHOCYTES # (AUTO) 1.6 /CMM (0.8-4.8); MEAN CORPUSCULAR HGB CONC 32 g/dl (31.0-36.0); MEAN CORPUSCULAR VOLUME 91 fL (80-96); MONOCYTES # (AUTO) 1.1 /CMM (0.1-1.30); MONOCYTES % (AUTO) 6.1 % (2.0-12.0); NEUTROPHILS # (AUTO) 14.6 /CMM (1.8-8.9); NEUTROPHILS % (AUTO) 80.3 % (43.0-81.0); PLATELET COUNT (AUTO) 499 /CMM (150-450); RED BLOOD CELL COUNT(AUTO) 2.74 MIL/uL (4.5-6.0); WHITE BLOOD COUNT (AUTO) 18.2 K/uL (4.3-11.0)
--- NOTE | 2019-01-07 06:55 | NUR ---
RN CLOSING NOTES NO SIGNIFICANT CHANGES IN Pt's CONDITION. Pt REMAINS STABLE PER BASELINE AT THIS TIME. NO S/S OF ACUTE DISTRESS OR SOB NOTED DURING THE NIGHT. Pt IS RESTING IN BED WITH UNLABORED RESPIRATIONS, WITH EQUAL CHEST RISE AND FALL. TOMAS CATH IN PLACE & DRAINING WELL, WITH 150CC OUTPUT. ALL NEEDS MET AND ATTENDED TO. SAFETY MEASURES IN PLACE. WILL ENDORSE TO DAYSHIFT RN FOR Pt's COURTNEY.
[2019-01-07 07:21] LABS: CARBON DIOXIDE 25 mmol/L (21-32); CHLORIDE 105 mmol/L (98-107); GLUCOSE 145 mg/dL (74-106); POTASSIUM 3.2 mmol/L (3.5-5.1); SODIUM SERUM 141 mmol/L (136-145); UREA NITROGEN, BLOOD 50 mg/dL (7-18)
[2019-01-07 07:55] LABS: EOSINOPHILS % (MANUAL) 4 % (0-4); MONOCYTES % (MANUAL) 7 % (0-11.0); NEUTROPHILS % (MANUAL) 76 (42-76)
[2019-01-07 07:56] LABS: BAND % (MANUAL) 1 % (0.0-5.0); LYMPHOCYTES % (MANUAL) 11 % (16-48); MYELOCYTES % 1 % (0-0)
[2019-01-07 08:00] VITALS: BP 109/44
[2019-01-07] MEDS: ASCORBIC ACID 500 MG TABLET GT SCH (08:55)
[2019-01-07] MEDS: CHLORHEXIDINE GLUCONATE 15 ML UDC MM SCH ×2 (08:55→20:29)
[2019-01-07] MEDS: LACTOBACILLUS RHAMNOSUS GG 1 EACH CAP.SPRINK GT SCH ×2 (08:55→20:29)
[2019-01-07] MEDS: AMIODARONE HCL 200 MG TABLET GT SCH (08:55)
[2019-01-07] MEDS: MEMANTINE HCL 5 MG TABLET GT SCH ×2 (08:56→16:57)
[2019-01-07] MEDS: VIT B CMPLX 3/FA/VIT C/BIOTIN 1 TAB TABLET GT SCH (09:01)
[2019-01-07] MEDS: POTASSIUM CHLORIDE 20 MEQ POWDER PACKET GT SCH (09:01)
[2019-01-07] MEDS: PANTOPRAZOLE 40 MG/PACK PACK GT SCH (09:01)
[2019-01-07] MEDS: SERTRALINE HCL 50 MG TABLET GT SCH (09:01)
[2019-01-07] MEDS: NEOMY SULF/BACITRAC ZN/POLY 15 GM TUBE TP SCH (09:03)
[2019-01-07] MEDS: DAKINS QUARTER STRENGTH (0.125%) 480 ML BOTTLE TOP SCH (09:04)
[2019-01-07] MEDS: PROSOURCE / PROSTAT (PYXIS) 30 ML UDC GT SCH ×2 (09:06→16:57)
--- NOTE | 2019-01-07 10:14 | NUR ---
ORDER FOR MIDLINE INSERTION PER
--- NOTE | 2019-01-07 13:30 | NUR ---
WOUND DRESSING CHANGED ORDERED
--- NOTE | 2019-01-07 14:00 | NUR ---
FEEDING RESTARTED ORDERED
[2019-01-07 16:00] VITALS: BP 135/65
--- NOTE | 2019-01-07 16:05 | NUR ---
MIDLINE INSERTED TO THE LEFT UPPER ARM , FLUSHING WELL.
--- NOTE | 2019-01-07 16:15 | NUR ---
PICC LINE RUE REMOVED. TIP SENT TO LAB FOR CULTURE
[2019-01-07] MEDS: CEFEPIME 1 GM in IV D5W 50 ML IV SCH (17:06)
--- NOTE | 2019-01-07 18:37 | NUR ---
Pt REMAINS STABLE PER BASELINE AT THIS TIME. NO S/S OF ACUTE DISTRESS OR SOB NOTED DURING THE SHIFT. Pt KEPT CLEAN AND DRY, REPOSITIONED Q2H, DRESSING CHANGED ORDERED, SUCTIONED. TOMAS CATH IN PLACE WITH 200 ML OUTPUT. ALL NEEDS MET AND ATTENDED TO. SAFETY MEASURES IN PLACE. FEEDING ON ORDERED, RESIDUAL 5 ML. WILL ENDORSE TO NEXT SHIFT FOR COURTNEY.
--- NOTE | 2019-01-07 19:30 | NUR ---
MS RN NOTE RECEIVED PATIENT IN BED. A/O X1. PATIENT IS ON A T-PIECE RECEIVING O2 AT 5L/MIN . O2 SAT IS 99%. RESPIRATIONS ARE EVEN AND UNLABORED. NO SIGN OF SOB NOTED. DENIES PAIN AT THIS TIME. IV ACCESS CAMILO MIDLINE. RIGHT UA PICC LINE NOT IN USE. G-TUBE IS PRESENT, PLACEMENT CHECKED. GTUBE RUNNING NEPRO AT 65ML/HR. TOMAS CATHETER PRESENT, DRAINING TO GRAVITY. URINE IS YELLOW . BED IS LOW AND LOCKED. BED IS IN LOWEST POSITION. HOB ELEVATED 30 DEGREES. CALL LIGHT WITHIN REACH. WILL CONTINUE TO MONITOR.
[2019-01-07 20:00] VITALS: BP 137/70
[2019-01-07] MEDS: MICAFUNGIN SODIUM 100 MG in IV NS 0.9% 100 ML IV SCH (20:11)
[2019-01-08] MEDS: NEPRO 1,000 ML BOTTLE GT PRN (02:56)
[2019-01-08] MEDS: INSULIN REGULAR, HUMAN 100 UNIT/ML 3 ML VIAL SQ PRN ×2 (05:26→18:02)
--- NOTE | 2019-01-08 05:30 | NUR ---
MS RN NOTE 0530 ACCUCHECK BLOOD SUGAR READ 175. NO INSULIN COVERAGE WAS GIVEN BECASUE THE GTUBE FEEDING IS SCHEDULED TO STOP AT 0600.
[2019-01-08] MEDS: BLOOD SUGAR DIAGNOSTIC 1 EACH STRIP IN SCH ×4 (05:40→23:59)
--- NOTE | 2019-01-08 06:42 | NUR ---
MS RN CLOSING NOTE PATIENT IS RESTING IN BED. A/O X1. PATIENT IS ON A T-PIECE WITH 5L/MIN. O2 SAT IS 100%. RESPIRATIONS ARE EVEN AND UNLABORED. NO SIGNS OF SOB NOTED. NO MANIFESTATIONS OF PAIN NOTED THROUGHOUT THE SHIFT. TOMAS CATHETER IS MAINTAINED, DRAINING TO GRAVITY, URINE IS YELLOW AND CLOUDY, OUTPUT IS 350 ML. GTUBE IS MAINTAINED PATENT, TUBE FEEDING WAS TOLERATED WELL. GTUBE FEEDING WAS STOPPED AT 0600. IV ACCESS MAINTAINED IN [place]IL[place] MIDLINE RUNNING TKO @3ML/MIN. SKIN KEPT CLEAN AND DRY. WOUND CARE WAS PROVIDED. PATIENT WAS TURNED AND OFFLOADED Q2HRS. BED IS LOW AND LOCKED. CALL LIGHT WITHIN REACH. WILL ENDORSE TO NEXT SHIFT FOR COURTNEY.
[2019-01-08 06:45] LABS: CALCIUM, SERUM 7.6 mg/dL (8.5-10.1); CARBON DIOXIDE 27 mmol/L (21-32); CHLORIDE 105 mmol/L (98-107); CREATININE 3.7 mg/dL (0.6-1.3); GLUCOSE 194 mg/dL (74-106); POTASSIUM 3.2 mmol/L (3.5-5.1); SODIUM SERUM 141 mmol/L (136-145); UREA NITROGEN, BLOOD 62 mg/dL (7-18)
[2019-01-08 07:47] LABS: BASOPHILS # (AUTO) 0.1 /CMM (0.0-0.2); BASOPHILS % (AUTO) 0.5 % (0.0-2.0); EOSINOPHILS % (AUTO) 2.6 % (0.0-6.0); HEMATOCRIT 22 % (39-51); HEMOGLOBIN 7.3 g/dL (13.5-17.5); LYMPHOCYTES # (AUTO) 1.6 /CMM (0.8-4.8); MEAN CORPUSCULAR HGB CONC 33 g/dl (31.0-36.0); MEAN CORPUSCULAR VOLUME 91 fL (80-96); MONOCYTES # (AUTO) 1.2 /CMM (0.1-1.30); MONOCYTES % (AUTO) 6.4 % (2.0-12.0); NEUTROPHILS # (AUTO) 16.1 /CMM (1.8-8.9); NEUTROPHILS % (AUTO) 82.5 % (43.0-81.0); PLATELET COUNT (AUTO) 467 /CMM (150-450); RED BLOOD CELL COUNT(AUTO) 2.44 MIL/uL (4.5-6.0); WHITE BLOOD COUNT (AUTO) 19.5 K/uL (4.3-11.0)
[2019-01-08 07:50] LABS: ALBUMIN 1.6 g/dL (3.4-5.0); BILIRUBIN,DIRECT 0.1 mg/dL (0.0-0.2); BILIRUBIN,TOTAL 0.3 mg/dL (0.2-1.0); PHOSPHORUS 2.2 mg/dL (2.5-4.9); TOTAL PROTEIN, SERUM 5.3 g/dL (6.4-8.2)
--- NOTE | 2019-01-08 08:00 | NUR ---
MS/RN - Assessment Patient is awake, alert to self, afebrile, no s/s of pain, not in any form of distress, on cool aerosol 28% FiO2, trached with Shiley 8, secured and intact. CAMILO midline flushing well. Patient tolerating TF Nepro at 60 ml/hr x 16 hours, off at 06:00 on at 14:00, no residual seen. KCI mattress in place for skin management. All pressure ulcer prevention measures noted to be in place, repositioned per protocol. Fall and aspiration precautions maintained. Labs reviewed, WBC trending up, on Vancomycin IV post HD. Will continue with current plan of care.
[2019-01-08 08:10] VITALS: BP 104/50
[2019-01-08 08:19] LABS: BAND % (MANUAL) 2 % (0.0-5.0); EOSINOPHILS % (MANUAL) 2 % (0-4); LYMPHOCYTES % (MANUAL) 6 % (16-48); MONOCYTES % (MANUAL) 11 % (0-11.0); MYELOCYTES % 1 % (0-0); NEUTROPHILS % (MANUAL) 78 (42-76)
[2019-01-08] MEDS: POTASSIUM CHLORIDE 20 MEQ POWDER PACKET GT SCH (08:28)
[2019-01-08] MEDS: CHLORHEXIDINE GLUCONATE 15 ML UDC MM SCH ×2 (08:28→20:24)
[2019-01-08] MEDS: MEMANTINE HCL 5 MG TABLET GT SCH ×2 (08:28→16:58)
[2019-01-08] MEDS: VIT B CMPLX 3/FA/VIT C/BIOTIN 1 TAB TABLET GT SCH (08:28)
[2019-01-08] MEDS: LACTOBACILLUS RHAMNOSUS GG 1 EACH CAP.SPRINK GT SCH ×2 (08:28→20:24)
[2019-01-08] MEDS: PANTOPRAZOLE 40 MG/PACK PACK GT SCH (08:29)
[2019-01-08] MEDS: SERTRALINE HCL 50 MG TABLET GT SCH (08:29)
[2019-01-08] MEDS: AMIODARONE HCL 200 MG TABLET GT SCH (08:29)
[2019-01-08] MEDS: ASCORBIC ACID 500 MG TABLET GT SCH (08:29)
[2019-01-08] MEDS: PROSOURCE / PROSTAT (PYXIS) 30 ML UDC GT SCH ×2 (08:29→16:58)
--- NOTE | 2019-01-08 09:00 | NUR ---
MS/RN - HD treatment HD treatment started by HD RN with no complications.
[2019-01-08] MEDS: NEOMY SULF/BACITRAC ZN/POLY 15 GM TUBE TP SCH (09:06)
[2019-01-08] MEDS: DAKINS QUARTER STRENGTH (0.125%) 480 ML BOTTLE TOP SCH (09:06)
--- NOTE | 2019-01-08 13:00 | NUR ---
MS/RN - HD treatment HD treatment completed, no fluid was removed per HD RN.
[2019-01-08] MEDS: VANCOMYCIN 500 MG in IV D5W 100 ML IV PRN (15:25)
--- NOTE | 2019-01-08 15:25 | NUR ---
MS/RN - Vancomycin trough Vancomycin trough 18, administered Vanco as ordered.
[2019-01-08] MEDS: CEFEPIME 1 GM in IV D5W 50 ML IV SCH (17:32)
--- NOTE | 2019-01-08 19:14 | NUR ---
MS/RN - Closing Notes No significant change in condition seen, remain afebrile, no s/s of pain, not in any form of distress. Will continue with current medical management. Endorsed to night shift manager accordingly.
--- NOTE | 2019-01-08 19:30 | NUR ---
MS RN OPENING NOTE RECEIVED PATIENT IN BED. A/O X1. PATIENT IS ON A T-PIECE RECEIVING OXYGEN AT 5L/MIN. O2 SATURATION IS 99%. RESPIRATIONS ARE EVEN AND UNLABORED. NO SIGNS OF SOB NOTED. DENIES PAIN AT THIS TIME. TOMAS CATHETER IS PRESENT, DRAINING TO GRAVITY, URINE IS YELLOW AND CLOUDY. G-TUBE IS PRESENT, CHECKED PLACEMENT, FLUSHED WITH NO RESISTANCE. GTUBE SITE HAS NO SIGNS OF INFECTION. GTUBE RUNNING NEPRO @65ML/HR. IV ACCESS CAMILO MIDLINE RUNNING TKO @3ML/HR. BED IS LOW AND LOCKED. HOB ELEVATED 30 DEGREES. SIDE RAILS UP X2. CALL LIGHT WITHIN REACH. WILL CONTINUE TO MONITOR.
[2019-01-08] MEDS: MICAFUNGIN SODIUM 100 MG in IV NS 0.9% 100 ML IV SCH (19:56)
[2019-01-08 20:00] VITALS: BP 118/61
[2019-01-09] MEDS: INSULIN REGULAR, HUMAN 100 UNIT/ML 3 ML VIAL SQ PRN ×2 (00:11→12:02)
--- NOTE | 2019-01-09 01:25 | NUR ---
MS RN NOTE MADE DR. FLORIDA STANFORD AWARE THAT THE PATIENTS POTASSIUM LEVEL IS 3.2 . AWAITING HIS REPLY.
--- NOTE | 2019-01-09 02:30 | NUR ---
MS RN NOTE PER DR. FLORIDA LAI, NO ORDERS FOR POTASSIUM REPLACEMENT NOW. WAIT TILL AM TO REPLACE ALL TOGETHER OR TUBE FEEDING SHOULD CORRECT IT. READ BACK, NOTED, AND CARRIED OUT.
[2019-01-09] MEDS: NEPRO 1,000 ML BOTTLE GT PRN (03:14)
--- NOTE | 2019-01-09 05:20 | NUR ---
MS RN NOTE ACCUCHECK READS BLOOD SUGAR 146. NO INSULIN COVERAGE GIVEN D/T GTUBE FEEDING STOPPING AT 0600
--- NOTE | 2019-01-09 06:00 | NUR ---
MS RN NOTE GTUBE FEEDING STOPPED PER ORDER. FLUSHED WITH 30ML WATER.
[2019-01-09] MEDS: BLOOD SUGAR DIAGNOSTIC 1 EACH STRIP IN SCH ×3 (06:01→16:42)
--- NOTE | 2019-01-09 06:29 | NUR ---
MS RN CLOSING NOTE PATIENT IS RESTING IN BED. A/O X1. PATIENT ON A T- PIECE WITH OXYGEN RUNNING AT 5L/MIN. RESPIRATIONS ARE EVEN AND UNLABORED. SUCTIONED WITH OUTPUT 200ML. SECRETIONS WERE RAMIREZ AND THICK. NO SIGNS OF SOB NOTED. NO S/S OF PAIN DURING SHIFT. IV ACCESS MAINTAIN IN CAMILO MIDLINE RUNNING TKO. TOMAS IS PRESENT, DRAINING TO GRAVITY. URINE IS YELLOW AND CLEAR. URINE OUTPUT 200. GTUBE MAINTAINED AND STOPPED NEPRO FEEDING OF 65ML/HR AT 0600. ENDORSE TO NEXT SHIFT TO BEGIN AGAIN AT 1400. KEPT SKIN CLEAN AND DRY. WOUND DRESSING CHANGED ORDERED. ALL NURSING NEEDS MET OFFLOADED AND REPOSITIONED Q2H. BED IS LOW AND LOCKED. HOB ELEVATED, SIDE RAILS UP X2. CALL LIGHT WITHIN REACH. WILL ENDORSE TO NEXT SHIFT FOR COURTNEY.
[2019-01-09 06:31] LABS: BASOPHILS # (AUTO) 0.1 /CMM (0.0-0.2); BASOPHILS % (AUTO) 0.6 % (0.0-2.0); EOSINOPHILS % (AUTO) 4.4 % (0.0-6.0); HEMATOCRIT 23 % (39-51); HEMOGLOBIN 7.4 g/dL (13.5-17.5); LYMPHOCYTES # (AUTO) 1.7 /CMM (0.8-4.8); LYMPHOCYTES % (AUTO) 10.1 % (20.0-44.0); MEAN CORPUSCULAR HGB CONC 32 g/dl (31.0-36.0); MEAN CORPUSCULAR VOLUME 91 fL (80-96); MONOCYTES % (AUTO) 6.2 % (2.0-12.0); NEUTROPHILS # (AUTO) 13.2 /CMM (1.8-8.9); NEUTROPHILS % (AUTO) 78.7 % (43.0-81.0); PLATELET COUNT (AUTO) 442 /CMM (150-450); RED BLOOD CELL COUNT(AUTO) 2.54 MIL/uL (4.5-6.0); WHITE BLOOD COUNT (AUTO) 16.8 K/uL (4.3-11.0)
[2019-01-09 07:13] LABS: CALCIUM, SERUM 7.9 mg/dL (8.5-10.1); CARBON DIOXIDE 26 mmol/L (21-32); CHLORIDE 104 mmol/L (98-107); CREATININE 2.9 mg/dL (0.6-1.3); GLUCOSE 152 mg/dL (74-106); MAGNESIUM 1.8 mg/dL (1.8-2.4); PHOSPHORUS 2.5 mg/dL (2.5-4.9); POTASSIUM 3.7 mmol/L (3.5-5.1); SODIUM SERUM 139 mmol/L (136-145); UREA NITROGEN, BLOOD 48 mg/dL (7-18)
--- NOTE | 2019-01-09 07:41 | NUR ---
MS/RN OPENING NOTE PATIENT IN BED IN STABLE CONDITION. A/O X 1, MOUTH WORDS, OPEN EYES. NO SIGNS OF ACUTE DISTRESS. NO COMPLAIN OF PAIN AND DISCOMFORT. ON COOL AEROSOL TOLERATING WELL, SHILEY 8, FIO2 28%. ON GTF NEPRO AT 65MLS/HR. HOB ELEVATED FOR ASPIRATION PRECAUTION. ALL NEEDS ATTENDED TO AT THIS TIME. CALL LIGHT WITHIN REACH. WILL CONTINUE TO MONITOR TO ENSURE SAFETY.
[2019-01-09 08:00] VITALS: BP 122/63
[2019-01-09] MEDS: PROSOURCE / PROSTAT (PYXIS) 30 ML UDC GT SCH ×3 (08:31→16:42)
[2019-01-09] MEDS: MEMANTINE HCL 5 MG TABLET GT SCH ×2 (08:32→16:42)
[2019-01-09] MEDS: VIT B CMPLX 3/FA/VIT C/BIOTIN 1 TAB TABLET GT SCH (08:32)
[2019-01-09] MEDS: PANTOPRAZOLE 40 MG/PACK PACK GT SCH (08:32)
[2019-01-09] MEDS: AMIODARONE HCL 200 MG TABLET GT SCH (08:32)
[2019-01-09] MEDS: CHLORHEXIDINE GLUCONATE 15 ML UDC MM SCH ×2 (08:32→20:54)
[2019-01-09] MEDS: ASCORBIC ACID 500 MG TABLET GT SCH (08:32)
[2019-01-09] MEDS: LACTOBACILLUS RHAMNOSUS GG 1 EACH CAP.SPRINK GT SCH ×2 (08:32→20:54)
[2019-01-09] MEDS: POTASSIUM CHLORIDE 20 MEQ POWDER PACKET GT SCH (08:32)
[2019-01-09] MEDS: SERTRALINE HCL 50 MG TABLET GT SCH (08:32)
[2019-01-09] MEDS: DAKINS QUARTER STRENGTH (0.125%) 480 ML BOTTLE TOP SCH (08:33)
[2019-01-09] MEDS: NEOMY SULF/BACITRAC ZN/POLY 15 GM TUBE TP SCH (08:33)
[2019-01-09 08:53] LABS: BAND % (MANUAL) 1 % (0.0-5.0); EOSINOPHILS % (MANUAL) 7 % (0-4); LYMPHOCYTES % (MANUAL) 9 % (16-48); MONOCYTES % (MANUAL) 7 % (0-11.0); NEUTROPHILS % (MANUAL) 76 (42-76)
[2019-01-09] MEDS ORDERED: LIDOCAINE 1%-EPI 1:100,000 20 ML VIAL TP ONE (14:00)
[2019-01-09] MEDS ORDERED: SILVER NITRATE APPLICATOR 1 EA BOX TP ONE (14:00)
--- NOTE | 2019-01-09 15:30 | NUR ---
MS/RN S/P SACRAL WOUND DEBRIDEMENT BY ALDO, TOLERATED WELL.
[2019-01-09 16:00] VITALS: BP 142/63
--- NOTE | 2019-01-09 18:17 | NUR ---
MS/RN CLOSING NOTE PATIENT IN BED IN STABLE CONDITION. A/O X 1, MOUTH WORDS ONLY, LITHUANIAN SPEAKING. TRACH DEPENDENT WITH FIO2 28%. NO SIGNS OF ACUTE DISTRESS.NO COMPLAIN OF PAIN OR DISCOMFORT. ON GTF NEPRO AT 65MLS/HR. TOLERATING WELL. ALL NEEDS ATTENDED TO AT THIS TIME. CALL LIGHT WITHIN REACH. WILL ENDORSE TO NEXT SHIFT FOR CONTINUITY OF CARE.
[2019-01-09] MEDS: CEFEPIME 1 GM in IV D5W 50 ML IV SCH (18:21)
[2019-01-09] MEDS ORDERED: NYSTATIN TOP POWDER 15 GM BOTTLE TP SCH (18:30)
[2019-01-09 20:00] VITALS: BP 125/68
[2019-01-09] MEDS: MICAFUNGIN SODIUM 100 MG in IV NS 0.9% 100 ML IV SCH (20:28)
[2019-01-09] MEDS: NYSTATIN TOP POWDER 15 GM BOTTLE TP SCH (21:21)
--- NOTE | 2019-01-09 21:41 | NUR ---
MS RN NOTES RECEIVED PATIENT AWAKE IN BED WITH NO DISTRESS NOTED. CALL LIGHT WITHIN REACH. TRACH INTACT AND PATENT, NO RESPIRATORY DISTRESS NOTED. NO FACIAL GROANING OR GRIMACING TO INDICATE PAIN OR DISCOMFORT. MIDLINE INTACT AND PATENT. FC INTACT AND PATENT. BED IN LOW LOCK SETTING. WILL CONTINUE TO MONITOR
[2019-01-10] VITALS (7 sets, daily range): BP systolic 112–140; BP diastolic 56–69
[2019-01-10] MEDS: BLOOD SUGAR DIAGNOSTIC 1 EACH STRIP IN SCH ×5 (01:08→23:52)
[2019-01-10] MEDS: INSULIN REGULAR, HUMAN 100 UNIT/ML 3 ML VIAL SQ PRN ×3 (01:11→18:32)
--- NOTE | 2019-01-10 06:20 | NUR ---
MS RN NOTES PATIENT ASLEEP IN BED WITH NO DISTRESS NOTED. CALL LIGHT WITHIN REACH. NELIA PERMA CATH INTACT WITH NO ACTIVE BLEEDING, REDNESS, OR SWELLING NOTED. TRACH INTACT AND PATENT, NO RESPIRATORY DISTRESS NOTED. MIDLINE INTACT AND PATENT. ALL DUE MEDS GIVEN ORDERED WITH NO ASE NOTED. WOUND CARE RENDERED TO SACRAL WOUND ORDERED, TOLERATED WELL WITH NO ACTIVE BLEEING NOTED. NO FACIAL GROANING OR GRIMACING TO INDICATE PAIN OR DISCOMFORT. FC INTACT AND PATENT. BED IN LOW LOCK SETTING. WILL CONTINUE TO MONITOR
[2019-01-10] MEDS: NEPRO 1,000 ML BOTTLE GT PRN (06:32)
--- NOTE | 2019-01-10 08:00 | NUR ---
MS RN OPENING NOTES Received Patient resting and asleep in bed. A/O x 1. VS stable with no acute distress. Trachea in place and patentl. Breathing even and unlabored on 5LPM via trachea with SPO2 at 100%No signs and symptoms of pain at this time. Sosa Cath in place and patent with clear yellow output noted. G-tube in place, patent and flushing well. CAMILO midline clean, dry, intact and flushing well. LCW PermaCath in place, clean, dry and intact. Safety precautions in place. Bed locked and set to lowest position with side rails x 2 up. Call light within reach. Will continue to monitor.
[2019-01-10] MEDS: AMIODARONE HCL 200 MG TABLET GT SCH (08:52)
[2019-01-10] MEDS: MEMANTINE HCL 5 MG TABLET GT SCH ×2 (08:53→17:37)
[2019-01-10] MEDS: SERTRALINE HCL 50 MG TABLET GT SCH (08:53)
[2019-01-10] MEDS: POTASSIUM CHLORIDE 20 MEQ POWDER PACKET GT SCH (08:53)
[2019-01-10] MEDS: VIT B CMPLX 3/FA/VIT C/BIOTIN 1 TAB TABLET GT SCH (08:53)
[2019-01-10] MEDS: DAKINS QUARTER STRENGTH (0.125%) 480 ML BOTTLE TOP SCH (08:53)
[2019-01-10] MEDS: ASCORBIC ACID 500 MG TABLET GT SCH (08:53)
[2019-01-10] MEDS: PANTOPRAZOLE 40 MG/PACK PACK GT SCH (08:53)
[2019-01-10] MEDS: CHLORHEXIDINE GLUCONATE 15 ML UDC MM SCH ×2 (08:53→21:04)
[2019-01-10] MEDS: LACTOBACILLUS RHAMNOSUS GG 1 EACH CAP.SPRINK GT SCH ×2 (08:53→21:04)
[2019-01-10] MEDS: NYSTATIN TOP POWDER 15 GM BOTTLE TP SCH ×2 (08:54→17:38)
[2019-01-10] MEDS: NEOMY SULF/BACITRAC ZN/POLY 15 GM TUBE TP SCH (08:54)
[2019-01-10] MEDS: PROSOURCE / PROSTAT (PYXIS) 30 ML UDC GT SCH ×3 (08:55→17:37)
[2019-01-10 09:18] LABS: BASOPHILS # (AUTO) 0.1 /CMM (0.0-0.2); BASOPHILS % (AUTO) 0.5 % (0.0-2.0); EOSINOPHILS % (AUTO) 4.5 % (0.0-6.0); HEMATOCRIT 21 % (39-51); LYMPHOCYTES # (AUTO) 1.5 /CMM (0.8-4.8); LYMPHOCYTES % (AUTO) 10.3 % (20.0-44.0); MEAN CORPUSCULAR HGB CONC 32 g/dl (31.0-36.0); MEAN CORPUSCULAR VOLUME 91 fL (80-96); MONOCYTES # (AUTO) 0.9 /CMM (0.1-1.30); MONOCYTES % (AUTO) 5.8 % (2.0-12.0); NEUTROPHILS # (AUTO) 11.8 /CMM (1.8-8.9); NEUTROPHILS % (AUTO) 78.9 % (43.0-81.0); PLATELET COUNT (AUTO) 411 /CMM (150-450); RED BLOOD CELL COUNT(AUTO) 2.28 MIL/uL (4.5-6.0)
[2019-01-10 09:26] LABS: HEMOGLOBIN 6.6 g/dL (13.5-17.5)
[2019-01-10 09:53] LABS: ALANINE AMINOTRANSFERASE 33 U/L (12-78); ALBUMIN 1.6 g/dL (3.4-5.0); ALKALINE PHOSPHATASE 200 U/L (46-116); ASPARTATE AMINOTRANSFERASE 23 U/L (15-37); BILIRUBIN,TOTAL 0.2 mg/dL (0.2-1.0); CALCIUM, SERUM 7.9 mg/dL (8.5-10.1); CARBON DIOXIDE 27 mmol/L (21-32); CHLORIDE 104 mmol/L (98-107); CREATININE 3.6 mg/dL (0.6-1.3); GLUCOSE 166 mg/dL (74-106); PHOSPHORUS 3.2 mg/dL (2.5-4.9); POTASSIUM 3.9 mmol/L (3.5-5.1); SODIUM SERUM 139 mmol/L (136-145); TOTAL PROTEIN, SERUM 5.2 g/dL (6.4-8.2); UREA NITROGEN, BLOOD 64 mg/dL (7-18)
[2019-01-10 09:56] LABS: LYMPHOCYTES % (MANUAL) 15 % (16-48); MONOCYTES % (MANUAL) 4 % (0-11.0); NEUTROPHILS % (MANUAL) 81 (42-76)
--- NOTE | 2019-01-10 14:45 | NUR ---
MS RN NOTES Obtained Consent to Blood Transfusion from daughter (Veena) via phone at this time. Witnessed by Juan CHAN.
--- NOTE | 2019-01-10 15:00 | NUR ---
MS RN NOTES Collected and obtained stool at this time. Placed specimen in fridge. Will continue to monitor.
--- NOTE | 2019-01-10 15:20 | NUR ---
MS RN NOTES Blood transfusion started at this time. Patient in stable condition, awake and resting in bed. VS stable with no acute distress. Breathing even and unlabored with no respiratory distress. No signs and symptoms of negative reaction. Will continue to monitor.
--- NOTE | 2019-01-10 15:35 | NUR ---
MS RN NOTES Blood transfusing at this time. Patient in stable condition, asleep and resting in bed. VS stable with no acute distress. Breathing even and unlabored with no respiratory distress. CAMILO Midline site, clean, dry, intact. No signs and symptoms of negative reaction. Will continue to monitor.
[2019-01-10] MEDS: CEFEPIME 1 GM in IV D5W 50 ML IV SCH (17:38)
--- NOTE | 2019-01-10 18:00 | NUR ---
MS RN NOTES Blood transfusion completed. Patient in stable condition, awake and watching TV. VS stable with no acute distress. Breathing even and unlabored on room air with no respiratory distress. No signs and symptoms of negative reaction. Will continue to monitor.
--- NOTE | 2019-01-10 19:08 | NUR ---
MS RN CLOSING NOTES Patient resting and asleep in bed. A/O x 1. VS stable with no acute distress. Trachea in place and patent. Breathing even and unlabored on 3LPM via trachea with SPO2 at 100%. No signs and symptoms of pain at this time. Sosa Cath in place and patent with cloudy yellow output noted. G-tube in place, patent and flushing well with Nephro running at 65ml/hr. CAMILO midline clean, dry, intact and flushing well. LCW PermaCath in place, clean, dry and intact. Wound treatments as ordered done. Safety precautions in place. Bed locked and set to lowest position with side rails x 2 up. Call light within reach. Will endorse plan of care to oncoming shift.
--- NOTE | 2019-01-10 19:45 | NUR ---
MS RN NOTES RECEIVED ON BED A/O X1,SPEAK SCOTTISH,ON TRACH TO COOL AEROSOL 28% AT 5L,O2 SAT 100%.ON GT FEEDING,NEPHRO AT 65ML/HR RATE,NO RESIDUAL NOTED.WITH LEFT UPPER ARM MIDLINE SALINE LOCK FOR MEDS,LEFT UPPER CHEST FOR HD ACCESS.KCI MATTRESS IN USED FOR WOUND MANAGEMENT.BILATERAL FOOR HEEL PROTECTOR IN USED FOR SKIN MANAGEMENT.REPOSITION PER PROTOCOL.WILL CONTINUE TO MONITOR STATUS.
[2019-01-10] MEDS: MICAFUNGIN SODIUM 100 MG in IV NS 0.9% 100 ML IV SCH (20:19)
[2019-01-10 20:23] LABS: OCCULT BLOOD STOOL NEGATIVE (NEGATIVE)
--- NOTE | 2019-01-11 | NUR ---
MS RN NOTES ACCU-CHECK BLOOD SUGAR CHECK 114,NO INSULIN COVERAGE,GT FEEDING IN PROGRESS TOLERATED WELL.
--- NOTE | 2019-01-11 05:24 | NUR ---
MS RN NOTES DRESSING CHANGED DONE ON SACRAL AREA.
[2019-01-11] MEDS: BLOOD SUGAR DIAGNOSTIC 1 EACH STRIP IN SCH ×2 (05:53→12:05)
[2019-01-11] MEDS: INSULIN REGULAR, HUMAN 100 UNIT/ML 3 ML VIAL SQ PRN (05:57)
--- NOTE | 2019-01-11 05:57 | NUR ---
blood sugar 157: blood sugar check result is 157, 2 units of insulin given per sliding scale. pt on tube feeding.
--- NOTE | 2019-01-11 06:22 | NUR ---
MS RN NOTES GT FEEDING OFF AT THIS TIME ORDERED,ON AT 1400.DRESSING CHANGED DONE ON SACRAL AREA.IV ABX TOLERATED WELL.IN NO ACUTE DISTRESS.WILL ENDORSE TO DAY NURSE FOR COURTNEY.
[2019-01-11 07:28] LABS: BASOPHILS # (AUTO) 0.1 /CMM (0.0-0.2); BASOPHILS % (AUTO) 0.5 % (0.0-2.0); EOSINOPHILS % (AUTO) 3.7 % (0.0-6.0); HEMATOCRIT 25 % (39-51); HEMOGLOBIN 8.1 g/dL (13.5-17.5); LYMPHOCYTES # (AUTO) 1.6 /CMM (0.8-4.8); LYMPHOCYTES % (AUTO) 10.4 % (20.0-44.0); MEAN CORPUSCULAR HGB CONC 32 g/dl (31.0-36.0); MEAN CORPUSCULAR VOLUME 92 fL (80-96); MONOCYTES # (AUTO) 0.9 /CMM (0.1-1.30); MONOCYTES % (AUTO) 6.2 % (2.0-12.0); NEUTROPHILS % (AUTO) 79.2 % (43.0-81.0); PLATELET COUNT (AUTO) 410 /CMM (150-450); RED BLOOD CELL COUNT(AUTO) 2.75 MIL/uL (4.5-6.0); WHITE BLOOD COUNT (AUTO) 15.1 K/uL (4.3-11.0)
--- NOTE | 2019-01-11 07:36 | NUR ---
RN MS OPENING NOTES Patient received on cool aerosol 28%, no sob noted. Patient remains A/o X 1, minimal secretions noted. Sosa draining well. Ledt upper arm midline present. Feeding to be turned on at 1400. Bed at the lowest setting, call light within reach.
[2019-01-11] MEDS: POTASSIUM CHLORIDE 20 MEQ POWDER PACKET GT SCH (08:10)
[2019-01-11] MEDS: CHLORHEXIDINE GLUCONATE 15 ML UDC MM SCH (08:10)
[2019-01-11 08:11] VITALS: BP 117/65
[2019-01-11] MEDS: SERTRALINE HCL 50 MG TABLET GT SCH (08:11)
[2019-01-11] MEDS: AMIODARONE HCL 200 MG TABLET GT SCH (08:11)
[2019-01-11] MEDS: VIT B CMPLX 3/FA/VIT C/BIOTIN 1 TAB TABLET GT SCH (08:11)
[2019-01-11] MEDS: MEMANTINE HCL 5 MG TABLET GT SCH (08:11)
[2019-01-11] MEDS: LACTOBACILLUS RHAMNOSUS GG 1 EACH CAP.SPRINK GT SCH (08:11)
[2019-01-11] MEDS: ASCORBIC ACID 500 MG TABLET GT SCH (08:11)
[2019-01-11] MEDS: PANTOPRAZOLE 40 MG/PACK PACK GT SCH (08:11)
[2019-01-11 08:21] LABS: CALCIUM, SERUM 7.9 mg/dL (8.5-10.1); CARBON DIOXIDE 23 mmol/L (21-32); CHLORIDE 101 mmol/L (98-107); CREATININE 2.8 mg/dL (0.6-1.3); GLUCOSE 151 mg/dL (74-106); MAGNESIUM 1.9 mg/dL (1.8-2.4); PHOSPHORUS 2.8 mg/dL (2.5-4.9); POTASSIUM 3.8 mmol/L (3.5-5.1); SODIUM SERUM 136 mmol/L (136-145); UREA NITROGEN, BLOOD 52 mg/dL (7-18)
[2019-01-11] MEDS: NEOMY SULF/BACITRAC ZN/POLY 15 GM TUBE TP SCH (08:24)
[2019-01-11] MEDS: DAKINS QUARTER STRENGTH (0.125%) 480 ML BOTTLE TOP SCH (08:24)
[2019-01-11] MEDS: NYSTATIN TOP POWDER 15 GM BOTTLE TP SCH (08:24)
[2019-01-11] MEDS: PROSOURCE / PROSTAT (PYXIS) 30 ML UDC GT SCH ×2 (08:25→12:23)
[2019-01-11] MEDS ORDERED: RXVAN XX (11:29)
[2019-01-11] MEDS ORDERED: MICA100V IV (11:29)
[2019-01-11] MEDS ORDERED: CEFE1VIA10 IV (11:29)
--- NOTE | 2019-01-11 16:20 | NUR ---
RN MS NOTES discharge Patient transfered to [facility] at this time. No sob noted, vital signs stable. Patient remains with fishman and Left upper arm midline per [facility]'s request. Patient to go IV abx when he gets there. Patient has all the necessary paperwork and discharge papers, all co signed by 2 RN's due to patient un able to sign at this time. Patient has no belongings. Report given to Long and patient is to go to [id number]. Addendum: 01/11/19 at 1622 by WESLY TALBOT RN Patient's wound photo taken a photo of and is on the chart.
== END 2019-01-11 16:15 | DRG 981 ==
LOC: ER 11:03 → TELE 12:43 → MED 01-03 08:48
PROVIDERS: ADMIT Family Medicine; ATTEND Internal Medicine
PROC: 02HV33Z Insertion of Infusion Device into Superior Vena Cava, Percutaneous Approach (ICD-10-PCS; 2019-01-02)
PROC: B548ZZA Ultrasonography of Superior Vena Cava, Guidance (ICD-10-PCS; 2019-01-02)
PROC: 5A1D70Z Performance of Urinary Filtration, Intermittent, Less than 6 Hours Per Day (ICD-10-PCS; 2019-01-02)
PROC: 0KBP0ZZ Excision of Left Hip Muscle, Open Approach (ICD-10-PCS; principal; 2019-01-06)
PROC: 0KBN0ZZ Excision of Right Hip Muscle, Open Approach (ICD-10-PCS; 2019-01-06)
PROC: 05HC33Z Insertion of Infusion Device into Left Basilic Vein, Percutaneous Approach (ICD-10-PCS; 2019-01-07)
PROC: 0KBP0ZZ Excision of Left Hip Muscle, Open Approach (ICD-10-PCS; 2019-01-09)
PROC: 0KBN0ZZ Excision of Right Hip Muscle, Open Approach (ICD-10-PCS; 2019-01-09)
PROC: 30233N1 Transfusion of Nonautologous Red Blood Cells into Peripheral Vein, Percutaneous Approach (ICD-10-PCS; 2019-01-10)
DX: J15.9 Unspecified bacterial pneumonia (principal); L89.154 Pressure ulcer of sacral region, stage 4; E43 Unspecified severe protein-calorie malnutrition; N18.6 End stage renal disease; G92 Toxic encephalopathy; R53.2 Functional quadriplegia; J96.10 Chronic respiratory failure, unspecified whether with hypoxia or hypercapnia; I12.0 Hypertensive chronic kidney disease with stage 5 chronic kidney disease or end stage renal disease; B37.49 Other urogenital candidiasis; J96.11 Chronic respiratory failure with hypoxia; Z99.11 Dependence on respirator [ventilator] status; E11.65 Type 2 diabetes mellitus with hyperglycemia; E11.649 Type 2 diabetes mellitus with hypoglycemia without coma; E11.22 Type 2 diabetes mellitus with diabetic chronic kidney disease; F02.80 Dementia in other diseases classified elsewhere, unspecified severity, without behavioral disturbance, psychotic disturbance, mood disturbance, and anxiety; G30.9 Alzheimer's disease, unspecified; I25.10 Atherosclerotic heart disease of native coronary artery without angina pectoris; I48.91 Unspecified atrial fibrillation; Z91.81 History of falling; Z79.4 Long term (current) use of insulin; Z79.899 Other long term (current) drug therapy; I70.0 Atherosclerosis of aorta; E87.6 Hypokalemia; E83.39 Other disorders of phosphorus metabolism; R13.10 Dysphagia, unspecified; Z99.2 Dependence on renal dialysis; Z93.1 Gastrostomy status; Z93.0 Tracheostomy status; Y95 Nosocomial condition; Z74.01 Bed confinement status; D64.9 Anemia, unspecified; I49.9 Cardiac arrhythmia, unspecified; L89.629 Pressure ulcer of left heel, unspecified stage; L89.619 Pressure ulcer of right heel, unspecified stage
CPT/HCPCS: 31720; 36415; 36569; 71045-TC; 76700-TC; 80048-TC; 80053-TC; 80061-TC; 80076-TC; 80202-TC; 81000-TC; 82272-TC; 82962-TC; 83605-TC; 83735-TC; 84100-TC; 84484-TC; 85025-TC; 85730-TC; 86706; 86850-TC; 86921-TC; 87040-TC; 87070-TC; 87081-TC; 87086-TC; 87186-TC; 87340; 90935-TC; 94640-TC; 94760-TC; 94762-TC; 99082-TC; A4216; A4623; A6253; A6403; G0378; J0692; J1815; J2248; J2543; J3370; J3490; J7030; J7040; J7042; J7050; J7060; P9016-BL

== ENCOUNTER 2019-02-13 15:17 | Emergency (ER) | payer MEDICARE, OTHER ==
[~2019-02-13] VITALS: Ht 167.6 cm; Wt 72.6 kg
[~2019-02-13 15:17] MED LIST changes: -ACET-868 PO; +AMIN30LI2 GT; -ASCO500T9 PO; +CEFE1VIA10 IV; -CHLO473M2 MM; +CHLO473M5 MM; -DONE10TA11 PO; +FOLI0.8T2 GT; -INSU100V30 IJ; -INSU100V7 SQ; +LOPE2CAP GT; -LOSA50TA3 PO; -MAGN400O6 PO; -MEMA10TA PO; +MICA100V IV; -MULT-447 PO; -NA P133E RC; +NUT.237L67 GT; -Nepro GT; -PANT40TA2 PO; -POLY17PO4 PO; -Prosource GT; +RXVAN XX
[2019-02-13 15:28] VITALS: BP 128/65
[2019-02-13] MEDS ORDERED: DIATR MEGLU/DIATRIZOATE SODIUM 30 ML BOTTLE (GASTROGRAPHIN) ONE (16:02)
== END 2019-02-13 16:58 ==
LOC: ER 15:23
DX: K94.23 Gastrostomy malfunction (principal); I11.0 Hypertensive heart disease with heart failure; I50.9 Heart failure, unspecified; E11.9 Type 2 diabetes mellitus without complications; I25.10 Atherosclerotic heart disease of native coronary artery without angina pectoris; I25.2 Old myocardial infarction; I48.91 Unspecified atrial fibrillation; R53.1 Weakness; G30.9 Alzheimer's disease, unspecified; F02.80 Dementia in other diseases classified elsewhere, unspecified severity, without behavioral disturbance, psychotic disturbance, mood disturbance, and anxiety; Z79.4 Long term (current) use of insulin
CPT/HCPCS: 43762; 74018; 99284; Q9963